=== PATIENT | male | born 1960 | race Caucasian/White ===

== ENCOUNTER 2017-04-05 14:05 | Observation (INO) ==
--- NOTE | 2017-04-05 14:23 | Emergency Department Note ---
Disposition Clinical Impression: Chest pain Qualifiers: Chest pain type: unspecified Qualified Code(s): R07.9 - Chest pain, unspecified Disposition: Admitted As Inpatient Condition: Good Time of Disposition: 17:14 Chest Pain HPI - General Chief Complaint: ED Chest Pain Stated Complaint: Chest Pain Time Seen by Provider: 04/05/17 14:12 Source: patient, family Limitations: no limitations Vital Signs Reviewed: Yes Nursing Notes Reviewed: Yes - History of Present Illness HPI Narrative: 56-year-old male history of hypertension, hyperlipidemia, diabetes, CAD s/p 1 stent 2015 presents to the ED for chest pain. Symptoms have been ongoing for the past 2 weeks gradual worse over the past week until today. Describes left- sided chest discomfort that sharp in nature and sometimes vibratory. Some radiation down the left arm. Last occurrence was 9 AM this morning. Some associated shortness of breath and nausea. Denies any diaphoresis. Does not worsen with exertion. Denies any fever, cough or recent illness. No history of blood clots. Recently had 1 stent placed over one year ago. Takes aspirin no Plavix. Recent surgery for his left foot, sees a geriatric social worker Dr. Woods. Severity scale (1-10): 7 - Related Data Home Medications Medication Instructions Recorded Confirmed Lovastatin [Altoprev] 40 mg PO HS 03/23/15 04/05/17 Mirtazapine [Remeron] 30 mg PO HS 03/23/15 04/05/17 Diltiazem CD (24hr) [Cardizem CD] 240 mg PO DAILY 05/06/15 04/05/17 traMADol [Ultram] 50 mg PO Q6HR PRN 05/06/15 04/05/17 Insulin NPH Human Isophane 40 - 50 units SQ BID 04/05/17 04/05/17 [Novolin N] Insulin Regular, Human [Novolin R] 30 units SQ BID 04/05/17 04/05/17 Previous Rx's Medication Instructions Recorded Isosorbide MONOnitrate (24 HR) 60 mg PO DAILY #30 tab.er.24h 05/08/15 [Imdur] Metoprolol [Lopressor] 25 mg PO BID #60 tablet 05/08/15 Allergies Allergy/AdvReac Type Severity Reaction Status Date / Time No Known Allergies Allergy Verified 04/05/17 14:19 All systems ED: reviewed and negative except as stated. Review of Systems: As Per HPI Constitutional: Denies: fever, chills Eyes: Denies: eye pain, vision change ENT ED: Denies: congestion, dysphagia Cardiovascular: Reports: chest pain, dyspnea on exertion Respiratory: Reports: dyspnea. Denies: cough Gastrointestinal: Denies: abdominal pain, nausea, vomiting Genitourinary: Denies: urgency, dysuria Musculoskeletal: Denies: back pain, neck pain Integumentary: Reports: lesions. Denies: rash, abrasion Neurological: Denies: headache, abnormal gait Psychiatric: Denies: anxiety, depression Endocrine: Denies: fatigue Chest Pain PMH - Past Medical History Medical history: Reports: arthritis, asthma, CHF, coronary artery disease, diabetes, hyperlipidemia, hypertension, myocardial infarction, peripheral artery disease, renal disease Surgical history: Reports: orthopedic, other, other Psychiatric history: Reports: anxiety, depression - Social History Smoking Status: Never smoker Alcohol use: Reports: occasionally Drug use: Reports: none Physical Exam - General Limitations: no limitations General appearance: alert, in no apparent distress, obese - Head Head exam: atraumatic, normocephalic, normal inspection - Eye Eye exam: Present: normal appearance, PERRL, EOMI - ENT ENT exam: normal exam, normal oropharynx, mucous membranes moist - Neck Neck exam: Present: normal inspection, full ROM, trachea midline. Absent: tenderness - Chest Chest inspection: Present: normal inspection, symmetric chest wall rise, tenderness (left chest) - Respiratory Respiratory exam: Present: normal lung sounds bilaterally - Cardiovascular Cardiovascular exam: Present: regular rate, normal rhythm, normal heart sounds - Abdominal Exam Abdominal exam: Present: soft (obese), Non-Tender, normal bowel sounds. Absent : tenderness, distention, guarding, rebound, rigidity - Extremities Exam Extremities exam: Present: full ROM, other. Absent: tenderness, pedal edema, calf tenderness - Back Exam Back exam: Present: normal inspection, full ROM. Absent: tenderness, vertebral tenderness - Neurological Exam Neurological exam: Present: alert, oriented X3 - Psychiatric Psychiatric exam: Present: normal affect, normal mood - Skin Skin exam: Present: warm, dry, intact, normal color Course Course Narrative: 56-year-old male presents with worsening chest pain. Describes some exertional symptoms with associated shortness of breath. Pain is a sharp sensation with now Dole ache 6 of 10. History of cardiac stent over year ago. EKG does not show any acute ischemic changes. Troponin 0. His HEART score is 4. Patient has been given full dose aspirin and nitro for pain. He will benefit admission for further evaluation. Patients in agreement with this plan. Impression is chest pain rule out ACS. - Consultations Consultation #1: Spoke with on-call hospitalist analisa Boston to admit for chest pain R/O ACS. No further orders at this time Time: 17:14 Vital Signs Temperature 98.6 F 04/05/17 14:17 Pulse Rate 93 04/05/17 14:17 Respiratory Rate 20 04/05/17 14:17 Blood Pressure 187/78 04/05/17 14:17 O2 Sat by Pulse Oximetry 99 04/05/17 14: Temperature 98.6 F 04/05/17 14:17 Pulse Rate 96 04/05/17 16:27 Respiratory Rate 18 04/05/17 16:27 Blood Pressure 121/81 04/05/17 16:27 O2 Sat by Pulse Oximetry 96 04/05/17 16:27 Oxygen Delivery Oxygen Delivery Room Air Chest Pain - Medical Records Medical records reviewed: Yes I reviewed the patient's medical records. - Lab Data Lab results reviewed: Yes I reviewed the patient's lab results. Result diagrams: 04/05/17 14:30 04/05/17 14:53 Lab Results 04/05/17 04/05/17 04/05/17 Range/Units 14:30 14:30 14:53 WBC 8.5 (4.3-11.1) K/mcL RBC 5.68 H (4.19-5.50) M/mcL Hgb 16.0 (12.9-16.9) g/dL Hct 47.6 (37.5-50.1) % MCV 83.8 (83.0-100.0) fL MCH 28.2 (28.0-33.3) pg MCHC 33.6 (31.6-35.5) g/dL RDW 13.5 (11.5-14.5) % Plt Count 196 (140-400) K/mcL MPV 9.5 (9.4-12.4) fL Immature Gran % 0.4 (0-4) % Seg Neutrophils % 57.9 % Lymphocytes % 31.2 % Monocytes % 8.2 % Eosinophils % 1.5 % Basophils % 0.8 % Neutrophils # 4.9 (1.6-8.9) K/mcL Lymphocytes # 2.7 (0.6-4.6) K/mcL Monocytes # 0.7 (0.0-1.3) K/mcL Eosinophils # 0.1 (0.0-0.6) K/mcL Basophils # 0.1 (0.0-0.2) K/mcL Sodium 134 L (136-145) mEq/L Potassium 4.5 (3.5-4.5) mEq/L Chloride 100 (98-109) mEq/L Carbon Dioxide 26 (19-29) mEq/L BUN 17 (8-26) mg/dL Creatinine 0.91 (0.72-1.25) mg/dL Est GFR ( Amer) > 60 (> 60) Est GFR (Non-Af Amer) > 60 (> 60) BUN/Creatinine Ratio 19 (6-26) Glucose 360 H (70-99) mg/dL Calculated Osmolality 294 (280-300) Calcium 9.3 (8.6-10.8) mg/dL Troponin I (0-0.03) ng/mL Specimen Rejected Hemolyzed 04/05/17 Range/Units 14:53 WBC (4.3-11.1) K/mcL RBC (4.19-5.50) M/mcL Hgb (12.9-16.9) g/dL Hct (37.5-50.1) % MCV (83.0-100.0) fL MCH (28.0-33.3) pg MCHC (31.6-35.5) g/dL RDW (11.5-14.5) % Plt Count (140-400) K/mcL MPV (9.4-12.4) fL Immature Gran % (0-4) % Seg Neutrophils % % Lymphocytes % % Monocytes % % Eosinophils % % Basophils % % Neutrophils # (1.6-8.9) K/mcL Lymphocytes # (0.6-4.6) K/mcL Monocytes # (0.0-1.3) K/mcL Eosinophils # (0.0-0.6) K/mcL Basophils # (0.0-0.2) K/mcL Sodium (136-145) mEq/L Potassium (3.5-4.5) mEq/L Chloride (98-109) mEq/L Carbon Dioxide (19-29) mEq/L BUN (8-26) mg/dL Creatinine (0.72-1.25) mg/dL Est GFR ( Amer) (> 60) Est GFR (Non-Af Amer) (> 60) BUN/Creatinine Ratio (6-26) Glucose (70-99) mg/dL Calculated Osmolality (280-300) Calcium (8.6-10.8) mg/dL Troponin I 0.00 (0-0.03) ng/mL Specimen Rejected - Radiology Data Radiology results reviewed: Yes I reviewed the patient's radiology results. Chest X-Ray 04/05/17 14:22 IMPRESSION: No acute findings. Slightly limited exam due to decreased inspiratory effort. D/ / Henry Martinez / Henry Martinez Interpreting Provider: Henry Martinez - EKG Data EKG attestation: Yes I reviewed and interpreted this EKG. EKG results narrative: EKG performed 1414 normal sinus rhythm normal axis, no ST elevation or depression, no T wave changes, good R wave progression, intervals are within normal limits. Compared to old EKG performed 05/06/2015 shows similar consistent findings. No acute ischemic changes. Heart Score - Score History: Moderately Suspicious EKG: Normal Age: 45-65 Risk Factors: Equal/Greater than 3 risk factor or history of atherosclerotic disease Troponin: Less than normal limit HEART Score Total: 4
[2017-04-05 14:41] LABS: Basophils # 0.1 K/mcL (0.0-0.2); Basophils % 0.8 %; Eosinophils # 0.1 K/mcL (0.0-0.6); Eosinophils % 1.5 %; Hematocrit 47.6 % (37.5-50.1); Immature Granulocytes % 0.4 % (0-4); Lymphocytes # 2.7 K/mcL (0.6-4.6); Lymphocytes % 31.2 %; Mean Corpuscular HGB Conc 33.6 g/dL (31.6-35.5); Mean Corpuscular Hemoglobin 28.2 pg (28.0-33.3); Mean Corpuscular Volume 83.8 fL (83.0-100.0); Mean Platelet Volume 9.5 fL (9.4-12.4); Monocytes # 0.7 K/mcL (0.0-1.3); Monocytes % 8.2 %; Neutrophils # 4.9 K/mcL (1.6-8.9); Platelet Count 196 K/mcL (140-400); Red Blood Count 5.68 M/mcL (4.19-5.50); Red Cell Distribution Width 13.5 % (11.5-14.5); Segmented Neutrophils % 57.9 %
[2017-04-05 15:14] LABS: BUN/Creatinine Ratio 19 (6-26); Blood Urea Nitrogen 17 mg/dL (8-26); Calcium 9.3 mg/dL (8.6-10.8); Carbon Dioxide 26 mEq/L (19-29); Chloride 100 mEq/L (98-109); Glucose 360 mg/dL (70-99); Osmolality,Calculated 294 (280-300); Potassium 4.5 mEq/L (3.5-4.5); Sodium 134 mEq/L (136-145); eGFR For African Americans > 60 (> 60); eGFR For Non-African Americans > 60 (> 60)
--- NOTE | 2017-04-05 16:11 | Emergency Department Note ---
START Narrative - START START: I examined this patient and my medical decision-making was reviewed with the Resident Physician. I agree with the documented findings, disposition and treatment plan as described except to the extent set forth below. 56-year-old female presents emergency room for chest pain. Patient has history of one stent. He is obese male. He does have risk factors. He rates his pressure in his chest a 6 out of 10. States is been getting worse over the past couple days. ACS rule out in the ER. I anticipate admission for observation for this patient. I feel he is at high risk and would need to be observed.
[2017-04-05] MEDS ORDERED: Aspirin 81 MG TAB.CHEW PO STA (16:55)
[2017-04-05] MEDS ORDERED: *HR* Morphine 2 MG/ML SYRINGE IVP ONE (16:56)
[2017-04-05] MEDS ORDERED: Nitroglycerin 0.4 MG TAB.SUBL SL PRN (16:56)
[2017-04-05] MEDS ORDERED: D5% in Water 1,000 ML IVC PRN ×2 (20:22→20:30)
[2017-04-05] MEDS ORDERED: *HR* Dextrose 50 % in Water (Syg) 50 ML SYRINGE IVP PRN ×2 (20:22→20:30)
[2017-04-05] MEDS ORDERED: Dextrose Gel 15 GM PO PRN ×4 (20:22→20:30)
[2017-04-05] MEDS ORDERED: Naloxone 0.4 MG/ML INJ IVP PRN (20:22)
[2017-04-05] MEDS ORDERED: traMADol 50 MG TABLET PO PRN (20:28)
[2017-04-05] MEDS: *HR* Heparin 5,000 UNIT/ML VIAL SQ SCH (21:15)
[2017-04-05] MEDS: Insulin LISPRO 300 UNITS/3 ML VIAL SQ SCH (21:16)
[2017-04-05] MEDS: Mirtazapine 15 MG TABLET PO SCH (21:16)
--- NOTE | 2017-04-05 21:38 | Internal Med History&Physical ---
Date of Encounter: 04/05/17 Time of Encounter: 21:28 Assessment and Plan (1) Chest pain Current visit: Yes Status: Acute Chest pain greater than 2 weeks. He reports chest pain getting worse over the last 4 days, chest pain is described as intermittent as of this assessment. Heart score of 4. He has multiple risk factors including prior NH with stents, morbid obesity, HTN, HLD, diabetes and congestive heart failure. Continue to rule out ACS. He remains clinically stable. TTE Nuclear stress in the morning Serial troponins Continuous telemetry, continuous O2 monitoring Cardiac/diabetic diet now, nothing by mouth after midnight CBC and BMP in the morning PT/INR and PTT now Qualifiers: Chest pain type: unspecified Qualified Code(s): R07.9 - Chest pain, unspecified (2) Diabetes Current visit: Yes Status: Chronic History of type 2 diabetes. Patient reports his blood glucose is often elevated. Start LSSIC with AC/HS Accu-Cheks and diabetic diet. 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 This evening the blood pressure is 168/89. However he has not had his antihypertensive medication this evening. Restart Cardizem, metoprolol and Imdur. Qualifiers: Hypertension type: essential hypertension Qualified Code(s): I10 - Essential (primary) hypertension (4) Hyperlipidemia Current visit: Yes Status: Acute Resume statin Qualifiers: Hyperlipidemia type: unspecified Qualified Code(s): E78.5 - Hyperlipidemia , unspecified (5) Nonhealing surgical wound Current visit: Yes Status: Acute Being seen by podiatry on an outpatient basis. We will consult podiatry due to nonhealing wound for antibiotic management. Dayshift team to call consult Qualifiers: Encounter type: subsequent encounter Qualified Code(s): T81.89XD - Other complications of procedures, not elsewhere classified, subsequent encounter (6) Morbid obesity with BMI of 50.0-59.9, adult Current visit: Yes Status: Chronic Discussed weight loss and additional lifestyle modifications. (7) DVT prophylaxis Current visit: Yes Status: Acute Heparin 5000 units subcutaneous twice a day Internal Medicine - H&P: HPI Chief complaint: Chest pain Admitted From: Home Plans for Post Hospital Care: Home History of present illness: Mr. Potter is a 56 year old male with a past medical history of coronary artery disease, NH status post stents in 2016, obesity, hypertension, HLD, DM, asthma, arthritis, CHF, PAD. He presents to [facility] [place] today with chest pain. He reports that he was at a podiatry appointment today for reassessment of a left foot diabetic ulcer and while at the podiatry office his mentioned he had been having chest pain and SOB. The salt miner then sent the patient over to the emergency department to be worked up. The patient reports that for the last 2 weeks he has been experiencing SOB and midsternal chest pain described as dull and achy with radiation to the left neck and left arm for greater. Additionally he reports the chest pain has increased in intensity over the last 3-4 days is now intermittently "sharp in spurts". He reports that the chest pain and SOB is exacerbated with activity. He denies any fever, weight gain nausea vomiting or diarrhea. He admits chills, SOB, chest pain with palpitations and tachycardia as well as diaphoresis and dizziness. Troponin in the ED negative at 0.00. EKG indicates normal sinus rhythm chest x-ray shows no acute findings. He is being admitted to rule out ACS Past Med Surg Social Fam HX - Past Medical History Medical history: arthritis, asthma, CHF, coronary artery disease, diabetes, hyperlipidemia, hypertension, myocardial infarction, peripheral artery disease, renal disease Psychiatric history: anxiety, depression - Past Surgical History Surgical History: orthopedic, other, other - Social History Smoking Status: Never smoker Alcohol use: occasionally Drug use: none - Family History Father Adopted: No Family Member Ethnicity: Non- Living Status: Hx Family Cardiac Disorders: Yes (multiple heart attacks pacemaker) Hx Family Respiratory Disorders: Yes Hx Family Cancer: Yes Hx Family GI Disorders: No Hx Family Endocrine Disorder: No Hx Family Neurologic Disorders: Yes Hx Family HEENT Disorders: No Hx Family Autoimmune Disorders: No Internal Medicine - H&P: Meds Lovastatin [Altoprev] 40 mg PO HS 03/23/15 [History] Mirtazapine [Remeron] 30 mg PO HS 03/23/15 [History] Diltiazem CD (24hr) [Cardizem CD] 240 mg PO DAILY 05/06/15 [History] traMADol [Ultram] 50 mg PO Q6HR PRN 05/06/15 [History] Isosorbide MONOnitrate (24 HR) [Imdur] 60 mg PO DAILY #30 tab.er.24h 05/08/15 [ Rx] Metoprolol [Lopressor] 25 mg PO BID #60 tablet 05/08/15 [Rx] Insulin NPH Human Isophane [Novolin N] 40 - 50 units SQ BID 04/05/17 [History] Insulin Regular, Human [Novolin R] 30 units SQ BID 04/05/17 [History] 3 Allergy/AdvReac Type Severity Reaction Status Date / Time No Known Allergies Allergy Verified 04/05/17 14:19 All Systems PM: A 10-system review of systems was performed and is negative for pertinent findings except as documented above in the HPI. - Constitutional Constitutional: no chills, no fever(s), no night sweats - EENT Eyes: no change in vision, no discharge, no pain, no photophobia Ears: no ear discharge, no ear pain, no tinnitus Nose, mouth and throat: no dysphagia, no nasal discharge, no neck pain, no sore throat - Cardiovascular Cardiovascular ROS IM: chest pain, dyspnea, dyspnea on exertion, lightheadedness , no diaphoresis, no edema, no irregular heart rhythm, no palpitations, no syncope - Respiratory Respiratory: dyspnea on exertion, no cough, no dyspnea, no hemoptysis, no wheezing, no pain on inspiration, no chest congestion, no excessive phlegm production - Gastrointestinal Gastrointestinal: no abdominal pain, no diarrhea, no hematemesis, no hematochezia, no melena, no nausea, no vomiting - Musculoskeletal Musculoskeletal ROS IM: no numbness, no tingling - Integumentary Integumentary IM: no rash, no unusual bruising - Neurological Neurological ROS: no confusion, no convulsions, no focal weakness, no numbness, no tingling, no tremor(s) - Hematologic/Lymphatic Hematologic/Lymphatic: no easy bruising - Constitutional Vitals: Temp Pulse Resp BP Pulse Ox 98.0 F 103 18 168/89 97 04/05/17 18:57 04/05/17 18:57 04/05/17 18:57 04/05/17 18:57 04/05/17 18:57 General appearance: Present: cooperative, mild distress, A&O X 3, morbidly obese , answers questions appropriately - Head Head exam: Present: atraumatic, normocephalic - Eye Eye exam: Present: EOMI, PERRL, conjuntiva pink, sclera anicteric Pupils: Present: PERRL - Neck Neck exam general surgery: Present: supple, trachea midline. Absent: lymphadenopathy - Respiratory Respiratory exam: Present: CTAB. Absent: accessory muscle use, rales, rhonchi, wheezes - Cardiovascular Cardiovascular exam: Present: RRR, +S1, +S2. Absent: diastolic murmur, gallop, rubs, systolic murmur - GI/Abdominal GI/Abdominal exam: Present: normal bowel sounds, soft, no peritoneal signs. Absent: distended, tenderness - Extremities Exam Extremities exam: Present: warm, radial pulses palpable and symmetrical. Absent : calf tenderness, cyanotic, pedal edema - Neurological Exam Neurological exam: Present: CN II-XII intact, oriented X3, no focal deficits. Absent: pronater drift, facial droop, speech deficit - Skin Skin exam: Present: dry, intact Internal Med - H&P Results - Labs CBC & Chem 7: 04/05/17 14:30 04/05/17 14:53 Labs: Cardiac Enzymes 04/05/17 Range/Units 20:28 Troponin I 0.00 (0-0.03) ng/mL - EKG Data -: EKG Interpreted by Myself EKG shows normal: sinus rhythm Rate: normal - EKG Data Prior EKG available for review: yes When compared to previous EKG: there is no significant change Interpretation IM: normal EKG - Diagnostic Studies Chest x-ray Status: image reviewed by me Additional comments: No acute findings however, exam is limited due to decreased inspiratory effect
[2017-04-05 21:50] LABS: INR 1.1
[2017-04-05 21:53] LABS: Activated Partial Thrombo Time 29.2 Seconds (26.0-36.0)
[2017-04-05 22:32] LABS: Hemoglobin A1C 11.8 %
[2017-04-05] MEDS: *HR* Morphine 2 MG/ML SYRINGE IVP PRN (22:50)
--- NOTE | 2017-04-05 23:23 | Event Note ---
Date of Encounter: 04/05/17 Time of Encounter: 23:22 Patient seen and examined with nurse practitioner. Agree with assessment and plan
[2017-04-06 04:03] LABS: Basophils # 0.1 K/mcL (0.0-0.2); Basophils % 0.7 %; Eosinophils # 0.2 K/mcL (0.0-0.6); Hematocrit 43.1 % (37.5-50.1); Hemoglobin 14.6 g/dL (12.9-16.9); Immature Granulocytes % 0.2 % (0-4); Mean Corpuscular HGB Conc 33.9 g/dL (31.6-35.5); Mean Corpuscular Hemoglobin 28.9 pg (28.0-33.3); Mean Corpuscular Volume 85.3 fL (83.0-100.0); Mean Platelet Volume 9.6 fL (9.4-12.4); Monocytes # 0.7 K/mcL (0.0-1.3); Monocytes % 8.7 %; Neutrophils # 4.2 K/mcL (1.6-8.9); Platelet Count 188 K/mcL (140-400); Red Blood Count 5.05 M/mcL (4.19-5.50); Red Cell Distribution Width 13.6 % (11.5-14.5); Segmented Neutrophils % 51.4 %
[2017-04-06 04:24] LABS: Alanine Aminotransferase 28 Units/L (0-55); Albumin 2.9 g/dL (3.5-5.0); Albumin/Globulin Ratio 0.8 (1.1-2.2); Alkaline Phosphatase 123 Units/L (38-126); Aspartate Amino Transferase 30 Units/L (5-34); BUN/Creatinine Ratio 20 (6-26); Bilirubin,Total 0.5 mg/dL (0.2-1.2); Blood Urea Nitrogen 18 mg/dL (8-26); Calcium 8.8 mg/dL (8.6-10.8); Carbon Dioxide 23 mEq/L (19-29); Chloride 100 mEq/L (98-109); Globulin 3.7 g/dL (2.4-3.5); Glucose 358 mg/dL (70-99); Osmolality,Calculated 292 (280-300); Potassium 3.8 mEq/L (3.5-4.5); Sodium 133 mEq/L (136-145); Total Protein 6.6 g/dL (6.0-8.3); eGFR For African Americans > 60 (> 60); eGFR For Non-African Americans > 60 (> 60)
[2017-04-06] MEDS: *HR* Heparin 5,000 UNIT/ML VIAL SQ SCH ×2 (05:25→16:44)
[2017-04-06] MEDS: *HR* Morphine 2 MG/ML SYRINGE IVP PRN ×3 (05:56→19:36)
[2017-04-06] MEDS ORDERED: Regadenoson 0.4 MG/5 ML SYRINGE IVP ONE (06:50)
--- NOTE | 2017-04-06 07:21 | Electrocardiograph Report ---
[facility] Test Date: 2017-04-05 Pat Name: Fer Potter Department: 102 Room: 3B23 Gender: M Hogshead Inspector: : 1960 Requested By: Joseph Potter Order Number: [id number] Reading MD: Rod Mills DO Measurements Intervals [place] Rate: 94 P: 32 SD: 144 QRS: -18 QRSD: 114 T: 63 QT: 369 QTc: 420 Interpretive Statements SINUS RHYTHM LOW QRS VOLTAGE IN PRECORDIAL LEADS [QRS DEFLECTION < 1.0 mV IN CHEST LEADS] PATTERN CONSISTENT WITH PULMONARY DISEASE MODERATE INTRAVENTRICULAR CONDUCTION DELAY [110+ ms QRS DURATION] Electronically Signed On 04-06-2017 7:19:41 EST by Rod Mills DO
[2017-04-06] MEDS: Insulin LISPRO 300 UNITS/3 ML VIAL SQ SCH ×4 (08:06→20:52)
[2017-04-06] MEDS ORDERED: Perflutren Lipid Microsphere 1.3 ML in 0.9 % Sodium Chloride 8.7 ML IVP ONE (08:09)
[2017-04-06] MEDS: Isosorbide MONOnitrate (24 HR) 60 MG TAB.ER.24H PO SCH (10:21)
[2017-04-06] MEDS: Diltiazem CD (24hr) 240 MG CAPSULE PO SCH (10:21)
--- NOTE | 2017-04-06 13:08 | Internal Med Progress Note ---
Date of Encounter: 04/06/17 Time of Encounter: 13:07 - Assessment and plan (1) CAD (coronary artery disease) Current Visit: Yes Status: Acute Assessment and plan: hx remote PCI. Elevated by cardiology abnormal stress test; cardiology recommended medical management at that time and would consider left heart catheterization if chest pain persisted. Patient has not followed up with cardiology since then. Now with intermittent chest pain for several months prior to presentation. Serialtroponin negative, EKG without acute ST changes. Stress test pending. Supposed to be on ASA, statin at home but not on home medication list. Continue ASA, statin, BB, nitrate. We will likely consult cardiology even if stress test is negative considering most recent cardiac consultation. Qualifiers: Coronary Disease-Associated Artery/Lesion type: [place] artery [place] vs. transplanted heart: [place] heart Associated angina: with unstable angina Qualified Code(s): I25.110 - Atherosclerotic heart disease of [place] coronary artery with unstable angina pectoris (2) Diabetes Current Visit: Yes Status: Chronic Assessment and plan: per hx. Uncontrolled. Hgb A1c 11.8%. Secondary to dietary noncompliance and sedentary lifestyle. Resume home insulin regimen as diet is likely restricted inpatient, add SSI. Monitor blood sugar and titrate PRN Qualifiers: Diabetes mellitus type: type 2 Diabetes mellitus complication status: with neurologic complications Diabetes mellitus complication detail: with polyneuropathy Qualified Code(s): E11.42 - Type 2 diabetes mellitus with diabetic polyneuropathy; Z79.4 - complaint supervisor (current) use of insulin; Z79.4 - [facility] (current) use of insulin; Z79.4 - [facility] (current) use of insulin; Z79.4 - [facility] (current) use of insulin (3) Diabetic foot infection Current Visit: No Status: Chronic Assessment and plan: per hx. Follows with Dr. Woods. S/p debridement on 04/05/2017. Continue local wound care. (4) Morbid obesity with BMI of 50.0-59.9, adult Current Visit: Yes Status: Chronic Assessment and plan: Lifestyle modifications encouraged but not likely. (5) Essential hypertension Current Visit: Yes Status: Acute Assessment and plan: per hx. BP variable but acceptable. Continue home BP medication. Monitor BP and titrate PRN (6) DVT prophylaxis Current Visit: Yes Status: Acute Assessment and plan: heparin - Subjective Interval history: Seen and examined at bedside. Patient is new to me, information obtained from chart review and patient report. Patient says he still having intermittent chest pain, chest pain localized to left side and radiates to left jaw and down left arm. Nothing makes better or worse described as sharp and tight at times. No shortness of breath. - Constitutional Vitals: Temp Pulse Resp BP Pulse Ox 98.3 F 102 16 120/69 93 04/06/17 12:01 04/06/17 12:01 04/06/17 12:01 04/06/17 12:01 04/06/17 12:01 General appearance: Present: cooperative, mild distress, A&O X 3, morbidly obese , answers questions appropriately - Head Head exam: Present: atraumatic, normocephalic - Eye Eye exam: Present: PERRL, conjuntiva pink, sclera anicteric Pupils: Present: PERRL - Neck Neck exam general surgery: Present: supple, trachea midline. Absent: lymphadenopathy - Respiratory Respiratory exam: Present: CTAB. Absent: accessory muscle use, rales, rhonchi, wheezes - Cardiovascular Cardiovascular exam: Present: RRR, +S1, +S2. Absent: diastolic murmur, gallop, rubs, systolic murmur - GI/Abdominal GI/Abdominal exam: Present: normal bowel sounds, soft, no peritoneal signs. Absent: distended, tenderness - Extremities Exam Extremities exam: Present: warm, radial pulses palpable and symmetrical. Absent : calf tenderness, cyanotic, pedal edema - Neurological Exam Neurological exam: Present: CN II-XII intact, oriented X3, no focal deficits. Absent: pronater drift, facial droop, speech deficit - Skin Skin exam: Present: dry Additional comments: left foot wound Internal Medicine: Result - Labs CBC & Chem 7: 04/06/17 03:04 04/06/17 03:04 Labs: Short CBC 04/06/17 Range/Units 03:04 WBC 8.2 (4.3-11.1) K/mcL Hgb 14.6 (12.9-16.9) g/dL Hct 43.1 (37.5-50.1) % Plt Count 188 (140-400) K/mcL Neutrophils # 4.2 (1.6-8.9) K/mcL BMP 04/06/17 03:04 Sodium 133 L Potassium 3.8 Chloride 100 Carbon Dioxide 23 BUN 18 Creatinine 0.88 Glucose 358 H Calcium 8.8 Cardiac Enzymes 04/05/17 04/06/17 Range/Units 20:28 03:04 Troponin I 0.00 0.01 (0-0.03) ng/mL Liver Function 04/06/17 Range/Units 03:04 Total Bilirubin 0.5 (0.2-1.2) mg/dL AST 30 (5-34) Units/L ALT 28 (0-55) Units/L Alkaline Phosphatase 123 (38-126) Units/L Albumin 2.9 L (3.5-5.0) g/dL - ABG Interpretation ABG results: PT/INR, D-dimer PT 12.0 Seconds (9.4-12.1) 04/05/17 21:02 - Impressions Impressions Echocardiogram 04/06/17 20:21 Impressions: Technically difficult study due to body habitus. LVEF 55%. Normal LV chamber size and function. Moderate concentric left ventricular hypertrophy. Mild left ventricular diastolic dysfunction. Right ventricle was not well visualized. In some views, it appeared to demonstrate normal function. Unable to estimate RVSP due to lack of TR jet. No obvious significant valvular dysfunction. Left Ventricular Wall Motion: Rest Echo Findings All wall segments showed normal motion. Findings: Study Quality * Technically sub-optimal due to body habitus. ECG Findings * Sinus tachycardia. Left Ventricle * LVEF 55%. * Normal LV chamber size and function. * Moderate concentric left ventricular hypertrophy. * Mild left ventricular diastolic dysfunction. Right Ventricle * Right ventricle was not well visualized. In some views, it appeared to demonstrate normal function. Left Atrium * Mild to moderately dilated left atrium. Right Atrium * Right atrium is not well visualized. Interatrial Septum * Interatrial septum not well evaluated. Aortic Valve * Aortic valve not well visualized. * No aortic regurgitation. * No aortic stenosis. Mitral Valve * No mitral stenosis. * No mitral regurgitation. * Mitral valve not well visualized. Tricuspid Valve * Tricuspid valve not well visualized. * No tricuspid regurgitation. * Unable to estimate RVSP due to lack of TR jet. Pulmonic Valve * Pulmonic valve not well visualized. Pericardium * The pericardium appears normal. IVC * The IVC is not well evaluated. Pulmonary Artery * Pulmonary artery not well visualized. Device lead * A device lead was visualized in the right atrium and right ventricle. Consult Discharge Plan - Plan Referrals: Neo Moore MD [Primary Care Provider] -
[2017-04-06] MEDS: Aspirin 81 MG TAB.CHEW PO SCH (16:10)
[2017-04-06] MEDS: Insulin NPH 100 UNIT/ML (x5UNIT) SQ SCH ×2 (16:44→20:51)
[2017-04-06] MEDS: Mirtazapine 15 MG TABLET PO SCH (20:52)
[2017-04-06] MEDS ORDERED: Insulin Regular, Human 100 UNIT/ML SQ SCH (21:00)
[2017-04-07] MEDS: *HR* Heparin 5,000 UNIT/ML VIAL SQ SCH (05:54)
[2017-04-07] MEDS: *HR* Morphine 2 MG/ML SYRINGE IVP PRN (05:54)
[2017-04-07 06:23] LABS: Chol/HDL Ratio 7.9 (0-4.9); Cholesterol 198 mg/dL (< 200); HDL Cholesterol 25 mg/dL (40-59); Triglycerides 519 mg/dL (< 150)
[2017-04-07] MEDS: Insulin NPH 100 UNIT/ML (x5UNIT) SQ SCH (08:33)
[2017-04-07] MEDS: Isosorbide MONOnitrate (24 HR) 60 MG TAB.ER.24H PO SCH (08:33)
[2017-04-07] MEDS: Diltiazem CD (24hr) 240 MG CAPSULE PO SCH (08:33)
[2017-04-07] MEDS: Aspirin 81 MG TAB.CHEW PO SCH (08:33)
[2017-04-07] MEDS: Insulin LISPRO 300 UNITS/3 ML VIAL SQ SCH ×2 (08:34→12:00)
[2017-04-07] MEDS ORDERED: Insulin LISPRO 300 UNITS/3 ML VIAL SQ SCH ×3 (09:00→21:00)
--- NOTE | 2017-04-07 13:58 | Cardiology Consult Note ---
<Cruzito Garcia - Last Filed: 04/07/17 14:21> Date of Encounter: 04/07/17 Time of Encounter: 13:56 Assessment and Plan (1) Chest pain Current Visit: Yes Status: Acute Atypical chest pain. There is reproducible pain on my exam. Pain occurs at rest. Pain radiates from his jaw to the top of his head. Cardiac work-up includes troponin negative x 3. EKG shows Sr with no acute ST changes, 2 day stress test was negative for ischemia. TTE shows preserved EF and no significant valvular disease. Findings reviewed with patient and family. LHC vs medical management discussed . He agrees to trial of medical management with close out-pt f/u. Possible LHC as out-pt. Noted to be started on imdur at Last hospital stay but he did not refill. Re start imdur. Continue asa, statin, and beta-destin. Aggressive risk factor modification. Recommend JOSÉ treatment. Out-pt f/u will be coordinated by [facility] in 1-2 weeks. Qualifiers: Chest pain type: unspecified Qualified Code(s): R07.9 - Chest pain, unspecified (2) CAD (coronary artery disease) Current Visit: Yes Status: Acute H/o PCI in 2008. Reports repeat LHC in 2013 at [facility] with no intervention. C/o chest pain. See plan above. Qualifiers: Coronary Disease-Associated Artery/Lesion type: [place] artery [place] vs. transplanted heart: [place] heart Associated angina: with unstable angina Qualified Code(s): I25.110 - Atherosclerotic heart disease of [place] coronary artery with unstable angina pectoris (3) Morbid obesity with BMI of 50.0-59.9, adult Current Visit: Yes Status: Chronic Discussion w patient/family: The assessment and plan as outlined above was discussed with the patient and/or family members who expressed understanding and agreement. All questions were answered. Thank you for involving us in the care of your patient. Please call with any questions. History of Present Illness Consult date: 04/07/17 Requesting physician: Ava Coreas Consult reason: Chest pain Chief complaint: CHEST PAIN History of present illness: Mr. Potter is a 56 year old male with a past medical history of CAD s/p PCI in 2008 at [facility], HTN, HLD, Obesity, DM type II, and untreated sleep apnea who presented with three weeks of increasing left sided chest pain, jaw pain, and left arm pain. Reports pain is random and often occurs at rest. Denies use of NTG. He also c/o dizziness and SOB. He underwent extensive cardiac work-up during his stay that was benign. Cardiology consulted to consider LHC for ongoing chest pain. His last LHC was in 2013 at [facility]. No intervention at that time. Past Med Surg Social Fam HX - Past Medical History Attestation: Yes The following information was validated with the patient. Medical history: arthritis, asthma, CHF, coronary artery disease, diabetes, hyperlipidemia, hypertension, myocardial infarction, peripheral artery disease, renal disease Psychiatric history: anxiety, depression - Past Surgical History Surgical History: orthopedic, other, other - Social History Smoking Status: Never smoker Alcohol use: occasionally Drug use: none - Family History Father Adopted: No Family Member Ethnicity: Non- Living Status: Hx Family Cardiac Disorders: Yes (multiple heart attacks pacemaker) Hx Family Respiratory Disorders: Yes Hx Family Cancer: Yes Hx Family GI Disorders: No Hx Family Endocrine Disorder: No Hx Family Neurologic Disorders: Yes Hx Family HEENT Disorders: No Hx Family Autoimmune Disorders: No Medications and Allergies Mirtazapine [Remeron] 30 mg PO HS 03/23/15 [History] Diltiazem CD (24hr) [Cardizem CD] 240 mg PO DAILY 05/06/15 [History] traMADol [Ultram] 50 mg PO Q6HR PRN 05/06/15 [History] Metoprolol [Lopressor] 25 mg PO BID #60 tablet 05/08/15 [Rx] Insulin NPH Human Isophane [Novolin N] 40 - 50 units SQ BID 04/05/17 [History] Insulin Regular, Human [Novolin R] 30 units SQ BID 04/05/17 [History] Aspirin 81 mg PO DAILY #30 tab.chew 04/07/17 [Rx] Atorvastatin [Lipitor] 40 mg PO HS #30 tablet 04/07/17 [Rx] Isosorbide MONOnitrate (24 HR) [Imdur] 60 mg PO DAILY #30 tab.er.24h 04/07/17 [ Rx] 3 Allergy/AdvReac Type Severity Reaction Status Date / Time No Known Allergies Allergy Verified 04/05/17 14:19 All Systems Review: A 10-system review of systems was performed and is negative for pertinent findings except as documented above in the HPI. Physical Examination Vital Signs, Last 4 Hours Temp Pulse Resp BP Pulse Ox 04/07/17 11:30 97.3 F L 83 16 118/67 95 General: Conversant, No Apparent Distress HEENT: Atraumatic, Normocephaly, Mucus Membranes Moist Neck: No JVD, Normal carotid pulses Cardiac: Reg Rate and Rhythm, Normal S1 and S2, No Murmur Lungs: Normal Breath Sounds, No Wheeze, Rales, Rhonchi Neuro: Alert and responsive, No focal deficits noted Abdomen: Soft, Non-Tender Skin: No rashes noted on visualized skin Musculoskeletal: No Chest Wall Tenderness Extremities: No Clubbing, No Cyanosis, No Edema, Normal Pulses Results 04/06/17 03:04 04/06/17 03:04 - Imaging and Cardiology Stress Test: report reviewed Echo: report reviewed - EKG Interpretation EKG results cardiology: personally reviewed Consult Discharge Plan - Plan Additional Instructions: F/up with Cardiology in 3-4 weeks Referrals: Neo Moore MD [Primary Care Provider] - Prescriptions: Aspirin 81 mg PO DAILY #30 tab.chew Atorvastatin [Lipitor] 40 mg PO HS #30 tablet Isosorbide MONOnitrate (24 HR) [Imdur] 60 mg PO DAILY #30 tab.er.24h <Kristian Harrington - Last Filed: 04/07/17 15:26> Date of Encounter: 04/07/17 - Attending Attestation I have personally performed a face to face evaluation on this patient. I have reviewed and agree with the care plan. History and Exam by me shows: Atypical chest pain with negative workup. Left heart cath is an option but a trial of medical mgmt. seems most approriate. Assessment and Plan Discussion w patient/family: The assessment and plan as outlined above was discussed with the patient and/or family members who expressed understanding and agreement. All questions were answered. Thank you for involving us in the care of your patient. Please call with any questions. History of Present Illness History of present illness: Mr. Potter is a 56 year old male All Systems Review: A 10-system review of systems was performed and is negative for pertinent findings except as documented above in the HPI. Physical Examination Vital Signs, Last 4 Hours Temp Pulse Resp BP Pulse Ox 04/07/17 14:41 98.2 F 85 15 113/67 92 04/07/17 11:30 97.3 F L 83 16 118/67 95 Results 04/06/17 03:04 04/06/17 03:04
[2017-04-07 14:42] VITALS: BP 113/67
--- NOTE | 2017-04-07 15:14 | Discharge Summary ---
Date of Encounter: 04/07/17 Time of Encounter: 15:11 - Discharge Diagnosis (1) Chest pain Priority: Primary Status: Acute Qualifiers: Chest pain type: unspecified Qualified Code(s): R07.9 - Chest pain, unspecified (2) CAD (coronary artery disease) Priority: Secondary Status: Chronic Qualifiers: Coronary Disease-Associated Artery/Lesion type: [place] artery [place] vs. transplanted heart: [place] heart Associated angina: without angina Qualified Code(s): I25.10 - Atherosclerotic heart disease of [place] coronary artery without angina pectoris (3) Essential hypertension Priority: Secondary Status: Chronic (4) Hyperlipidemia Priority: Secondary Status: Chronic Qualifiers: Hyperlipidemia type: mixed hyperlipidemia Qualified Code(s): E78.2 - Mixed hyperlipidemia (5) Nonhealing surgical wound Priority: Secondary Status: Chronic Qualifiers: Encounter type: subsequent encounter Qualified Code(s): T81.89XD - Other complications of procedures, not elsewhere classified, subsequent encounter (6) Diabetes Priority: Secondary Status: Chronic Qualifiers: Diabetes mellitus type: type 2 Diabetes mellitus complication status: with neurologic complications Diabetes mellitus complication detail: with polyneuropathy Diabetes mellitus oil heaterman insulin use: with chcf use Qualified Code(s): E11.42 - Type 2 diabetes mellitus with diabetic polyneuropathy; Z79.4 - terminal operations 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 (current) use of insulin; Z79.4 - prison ( current) use of insulin; Z79.4 - prison (current) use of insulin; Z79.4 - terminal operations 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 (current) use of insulin (7) Morbid obesity with BMI of 50.0-59.9, adult Priority: Secondary Status: Chronic (8) Peripheral vascular disease Priority: Secondary Status: Chronic - Discharge Medications Prescriptions: Aspirin 81 mg PO DAILY #30 tab.chew Atorvastatin [Lipitor] 40 mg PO HS #30 tablet Isosorbide MONOnitrate (24 HR) [Imdur] 60 mg PO DAILY #30 tab.er.24h Home Medications: Mirtazapine [Remeron] 30 mg PO HS 03/23/15 [History] Diltiazem CD (24hr) [Cardizem CD] 240 mg PO DAILY 05/06/15 [History] traMADol [Ultram] 50 mg PO Q6HR PRN 05/06/15 [History] Metoprolol [Lopressor] 25 mg PO BID #60 tablet 05/08/15 [Rx] Insulin NPH Human Isophane [Novolin N] 40 - 50 units SQ BID 04/05/17 [History] Insulin Regular, Human [Novolin R] 30 units SQ BID 04/05/17 [History] Aspirin 81 mg PO DAILY #30 tab.chew 04/07/17 [Rx] Atorvastatin [Lipitor] 40 mg PO HS #30 tablet 04/07/17 [Rx] Isosorbide MONOnitrate (24 HR) [Imdur] 60 mg PO DAILY #30 tab.er.24h 04/07/17 [ Rx] Allergies/Adverse Reactions: 3 Allergy/AdvReac Type Severity Reaction Status Date / Time No Known Allergies Allergy Verified 04/05/17 14:19 Procedures/tests Complete & Pending: Procedures Performed prior 72 hours Category Date Time Status NM apurva perf SPECT multi [NM] Routine Exams 04/06/17 08:00 Taken EV echocardiogram w enhance Routine Y 04/06/17 20:21 Completed SP pharm nuclear stress Routine Y 04/06/17 07:30 Completed Date of admission: 04/05/17 17:11 Primary care physician: Neo Moore MD Consults: 04/05/17 22:20 Consult to Podiatry [CONS] Routine Consulting Provider: [facility] Reason for Consult: Nonhealing diabetic foot ulcer on left foot; antibiotic management Call Completed: No 04/07/17 11:50 Consult to Cardiology [CONS] Routine Comment: Consulting Provider: [facility] [place] Reason for Consult: Chest pain, intermittent, poorly controlled TG, DM Call Completed: Yes Discharging clinician: Ava Coreas Anticipated date of discharge: 04/07/17 - Patient Status Disposition: Home, Self-Care Condition: Good Functional capacity at discharge: independent ambulation Overall status at discharge: patient is progressing back to baseline - Discharge Instructions Instructions: Chest Pain (DC), Diabetic Foot Care (DC), Obesity (DC) Follow Up With: Neo Moore MD [Primary Care Provider] - Additional Instructions: F/up with Cardiology in 3-4 weeks - Diet and Activity Activity: resume usual activities as tolerated Diet: diabetic diet, low fat, low cholesterol, low salt diet Hospital course: Mr. Potter is a 56 year old male with the above medical problems, who was admitted with chest pain. Initial labs, EKG and chest x-ray showed no acute abnormality. Telemetry monitoring remained uneventful. Serial troponins remained negative. Echocardiogram showed 55% ejection fraction, moderate concentric LVH, mild left ventricular diastolic dysfunction. Nuclear stress test was negative for infarct or ischemia. Cardiology was consulted due to intermittent chest pain and recommended outpatient follow-up. Patient was supposed to be on Imdur but has not been taking it, provided with new prescription and encouraged compliance. He was also noted to have uncontrolled diabetes with hemoglobin A1c of 11.8%. Lipid profile showed elevated triglycerides at 519. He was explained about risk factor modification with dietary restrictions, weight loss and compliance with insulin. He verbalized understanding. He is medically stable for discharge. - Time Spent with Patient Total time spent providing and/or coordinating discharge services: Greater than 30 minutes (45 min) - Constitutional Vitals: Temp Pulse Resp BP Pulse Ox 98.2 F 85 15 113/67 92 04/07/17 14:41 04/07/17 14:41 04/07/17 14:41 04/07/17 14:41 04/07/17 14:41 General appearance: Present: cooperative, A&O X 3, morbidly obese, answers questions appropriately - Respiratory Respiratory exam: Present: CTAB. Absent: accessory muscle use, rales, rhonchi, wheezes
[2017-04-07] MEDS ORDERED: Insulin NPH 100 UNIT/ML (x5UNIT) SQ SCH (21:00)
== END 2017-04-07 16:00 | disposition home or self-care (01) ==
LOC: 3BNU 14:05 → EMEROO 14:05 → SUATTDRO 17:11 → 3BNU 18:28
PROVIDERS: ADMIT Nurse Practitioner; ATTEND Internal Medicine

== ENCOUNTER 2019-01-08 17:32 | Observation (INO) ==
[2019-01-08] MEDS ORDERED: Aspirin 325 MG TABLET PO ONE ×2 (18:16→23:39)
[2019-01-08 18:21] LABS: Basophils # 0.1 K/mcL (0.0-0.2); Basophils % 0.8 %; Eosinophils # 0.1 K/mcL (0.0-0.6); Eosinophils % 1.3 %; Hematocrit 47.3 % (37.5-50.1); Hemoglobin 15.8 g/dL (12.9-16.9); Immature Granulocytes % 0.5 % (0-4); Lymphocytes # 2.2 K/mcL (0.6-4.6); Lymphocytes % 29.4 %; Mean Corpuscular HGB Conc 33.4 g/dL (31.6-35.5); Mean Corpuscular Hemoglobin 28.2 pg (28.0-33.3); Mean Corpuscular Volume 84.5 fL (83.0-100.0); Monocytes # 0.7 K/mcL (0.0-1.3); Neutrophils # 4.4 K/mcL (1.6-8.9); Platelet Count 187 K/mcL (140-400); Red Cell Distribution Width 13.8 % (11.5-14.5); White Blood Count 7.5 K/mcL (4.3-11.1)
[2019-01-08] MEDS: Nitroglycerin 0.4 MG TAB.SUBL SL PRN ×3 (18:36→18:47)
[2019-01-08 18:39] LABS: INR 0.9; Prothrombin Time 10.3 Seconds (9.4-12.1)
[2019-01-08 18:42] LABS: Activated Partial Thrombo Time 29.6 Seconds (26.0-36.0)
--- NOTE | 2019-01-08 18:42 | Emergency Department Note ---
Disposition Clinical Impression: Lightheadedness, Hyperglycemia Chest pain Qualifiers: Chest pain type: unspecified Qualified Code(s): R07.9 - Chest pain, unspecified Disposition: Admitted As Inpatient Condition: Good Forms: ED Satisfaction Letter Time of Disposition: 20:26 Chest Pain HPI - General Chief Complaint: ED Chest Pain Stated Complaint: CP/DAMON/Dizziness Time Seen by Provider: 01/08/19 17:39 Source: patient Mode of arrival: private vehicle Limitations: no limitations Vital Signs Reviewed: Yes Nursing Notes Reviewed: Yes - History of Present Illness HPI Narrative: This is a 58-year-old male with a history of CAD, hypertension, diabetes, hyperlipidemia who presents with a chief complaint of chest pain and dizziness. Patient reports he had symptoms since Monday. Reports pain in the center of his chest. He is also felt dizzy when walking around. He has had some mild shortness of breath. He denies any nausea vomiting or diarrhea. No recent illnesses with the exception of a cough. No other complaints. Pt complaint: chest pain Onset (ago): day(s) Duration: intermittent Pain Location: left chest Severity scale (1-10): 6 Pain Radiation: none Improves with: nothing Worsens with: nothing Associated symptoms: Reports: dyspnea. Denies: nausea, vomiting Treatments prior to arrival chest pain: none - Related Data Home Medications Medication Instructions Recorded Confirmed Mirtazapine [Remeron] 30 mg PO HS 03/23/15 04/05/17 Diltiazem CD (24hr) [Cardizem CD] 240 mg PO DAILY 05/06/15 04/05/17 traMADol [Ultram] 50 mg PO Q6HR PRN 05/06/15 04/05/17 Insulin NPH Human Isophane 40 - 50 units SQ BID 04/05/17 04/05/17 [Novolin N] Insulin Regular, Human [Novolin R] 30 units SQ BID 04/05/17 04/05/17 Previous Rx's Medication Instructions Recorded Metoprolol [Lopressor] 25 mg PO BID #60 tablet 05/08/15 Aspirin 81 mg PO DAILY #30 tab.chew 04/07/17 Atorvastatin [Lipitor] 40 mg PO HS #30 tablet 04/07/17 Isosorbide MONOnitrate (24 HR) 60 mg PO DAILY #30 tab.er.24h 04/07/17 [Imdur] Allergies Allergy/AdvReac Type Severity Reaction Status Date / Time No Known Allergies Allergy Verified 04/05/17 14:19 All systems ED: reviewed and negative except as stated. Constitutional: Denies: fever Cardiovascular: Reports: chest pain Respiratory: Reports: cough, dyspnea Gastrointestinal: Denies: abdominal pain, nausea, vomiting, diarrhea Chest Pain PMH - Past Medical History Medical history: Reports: arthritis, asthma, CHF, coronary artery disease, diabetes, hyperlipidemia, hypertension, myocardial infarction, peripheral artery disease, renal disease Surgical history: Reports: orthopedic, other, other Psychiatric history: Reports: anxiety, depression - Social History Smoking Status: Never smoker Alcohol use: Reports: occasionally Drug use: Reports: none Physical Exam - General Limitations: no limitations General appearance: alert, in no apparent distress - Head Head exam: atraumatic, normocephalic, normal inspection - Eye Eye exam: Present: normal appearance - ENT ENT exam: normal exam - Neck Neck exam: Present: normal inspection - Chest Chest inspection: Present: normal inspection, symmetric chest wall rise - Respiratory Respiratory exam: Present: normal lung sounds bilaterally - Cardiovascular Cardiovascular exam: Present: normal rhythm, tachycardia - Abdominal Exam Abdominal exam: Present: soft, Non-Tender. Absent: tenderness, distention, rigidity - Extremities Exam Extremities exam: Present: normal inspection, full ROM - Expanded Upper Extremity Exam Shoulder exam: Present: normal inspection, full ROM Arm exam: Present: normal inspection, full ROM Elbow exam: Present: normal inspection, full ROM Forearm/Wrist exam: Present: normal inspection, full ROM Hand exam: Present: normal inspection, full ROM - Expanded Lower Extremity Exam Hip/Pelvis exam: Present: normal inspection, full ROM Upper leg exam: Present: normal inspection, full ROM Knee exam: Present: normal inspection, full ROM Lower leg exam: Present: normal inspection, full ROM Ankle exam: Present: normal inspection, full ROM Foot/toe exam: Present: normal inspection, full ROM - Skin Skin exam: Present: warm, dry Course Course Narrative: Seen and examined. Vital signs reviewed. He is noted to be mildly tachycardic here. Plan for EKG, chest x-ray, labs, aspirin and nitroglycerin. Given his risk factors anticipation for admission. - Reevaluation(s) Reevaluation #1: Patient's pain did somewhat improve with nitroglycerin but still present. Formal and some morphine ordered. His labs are grossly unremarkable with the exception of hyperglycemia without evidence of an anion gap. 2 units of insulin have been ordered. Chest x-ray is unremarkable. Patient to be admitted to the hospital service. Vital Signs Temperature 98.3 F 01/08/19 17:44 Pulse Rate 113 01/08/19 17:44 Respiratory Rate 18 01/08/19 17:44 Blood Pressure 208/113 01/08/19 17:44 O2 Sat by Pulse Oximetry 98 01/08/19 17:44 Temperature 98.3 F 01/08/19 17:44 Pulse Rate 109 01/08/19 20:00 Respiratory Rate 20 01/08/19 20:00 Blood Pressure 148/78 01/08/19 20:00 O2 Sat by Pulse Oximetry 99 01/08/19 20:00 Oxygen Delivery Oxygen Delivery Room Air Chest Pain - MDM Narrative Medical decision making narrative: 58-year-old male presenting with chest pain and lightheadedness since over the weekend. He is noted to be slightly tachycardic here around 110. His resting heart rate per family is around 100. EKG shows a sinus rhythm with an old right bundle branch block. His x-ray and labs are otherwise unremarkable with the exception of being hyperglycemic without. Patient was given nitroglycerin and aspirin. He was also given morphine for his pain which improved. He was given 10 units of insulin for his hyperglycemia. The patient is admitted to the hospital service for chest pain, hyperglycemia and lightheadedness. - Lab Data Lab results reviewed: Yes I reviewed the patient's lab results. Result diagrams: 01/08/19 18:01 01/08/19 18:01 Lab Results 01/08/19 01/08/19 01/08/19 Range/Units 18:01 18:01 18:01 WBC 7.5 (4.3-11.1) K/mcL RBC 5.60 H (4.19-5.50) M/mcL Hgb 15.8 (12.9-16.9) g/dL Hct 47.3 (37.5-50.1) % MCV 84.5 (83.0-100.0) fL MCH 28.2 (28.0-33.3) pg MCHC 33.4 (31.6-35.5) g/dL RDW 13.8 (11.5-14.5) % Plt Count 187 (140-400) K/mcL MPV 10.0 (9.4-12.4) fL Immature Gran % 0.5 (0-4) % Seg Neutrophils % 59.0 % Lymphocytes % 29.4 % Monocytes % 9.0 % Eosinophils % 1.3 % Basophils % 0.8 % Neutrophils # 4.4 (1.6-8.9) K/mcL Lymphocytes # 2.2 (0.6-4.6) K/mcL Monocytes # 0.7 (0.0-1.3) K/mcL Eosinophils # 0.1 (0.0-0.6) K/mcL Basophils # 0.1 (0.0-0.2) K/mcL PT 10.3 (9.4-12.1) Seconds INR 0.9 APTT 29.6 (26.0-36.0) Seconds Sodium (136-145) mEq/L Potassium (3.5-5.1) mEq/L Chloride (98-107) mEq/L Carbon Dioxide (23-29) mEq/L BUN (6-20) mg/dL Creatinine (0.70-1.30) mg/dL Est GFR ( Amer) (> 60) Est GFR (Non-Af Amer) (> 60) BUN/Creatinine Ratio (6-26) Glucose (70-105) mg/dL Calculated Osmolality (280-300) Calcium (8.6-10.3) mg/dL Troponin I < 0.03 (< 0.04) ng/mL B-Natriuretic Peptide (Less than 100) pg/mL 01/08/19 01/08/19 Range/Units 18:01 18:01 WBC (4.3-11.1) K/mcL RBC (4.19-5.50) M/mcL Hgb (12.9-16.9) g/dL Hct (37.5-50.1) % MCV (83.0-100.0) fL MCH (28.0-33.3) pg MCHC (31.6-35.5) g/dL RDW (11.5-14.5) % Plt Count (140-400) K/mcL MPV (9.4-12.4) fL Immature Gran % (0-4) % Seg Neutrophils % % Lymphocytes % % Monocytes % % Eosinophils % % Basophils % % Neutrophils # (1.6-8.9) K/mcL Lymphocytes # (0.6-4.6) K/mcL Monocytes # (0.0-1.3) K/mcL Eosinophils # (0.0-0.6) K/mcL Basophils # (0.0-0.2) K/mcL PT (9.4-12.1) Seconds INR APTT (26.0-36.0) Seconds Sodium 135 L (136-145) mEq/L Potassium 4.5 (3.5-5.1) mEq/L Chloride 102 (98-107) mEq/L Carbon Dioxide 22 L (23-29) mEq/L BUN 23 H (6-20) mg/dL Creatinine 0.87 (0.70-1.30) mg/dL Est GFR ( Amer) > 60 (> 60) Est GFR (Non-Af Amer) > 60 (> 60) BUN/Creatinine Ratio 26 (6-26) Glucose 502 H* (70-105) mg/dL Calculated Osmolality 306 H (280-300) Calcium 9.0 (8.6-10.3) mg/dL Troponin I (< 0.04) ng/mL B-Natriuretic Peptide 12 (Less than 100) pg/mL - Radiology Data Radiology results reviewed: Yes I reviewed the patient's radiology results. Chest X-Ray 01/08/19 17:46 IMPRESSION: No acute process. D/ / Jacobo Maxwell MD / Jacobo Maxwell MD Interpreting Provider: Jacobo Maxwell MD - EKG Data EKG attestation: Yes I reviewed and interpreted this EKG. EKG results narrative: EKG demonstrates sinus tachycardia with a rate of 109 with a right bundle branch block. Prolonged QRS ration of 160. Other intervals normal. He has upsloping ST depressions in the inferior and lateral leads. No gross ST elevations. No significant changes from previous EKG dated 08/26/18 Heart Score - Score History: Moderately Suspicious EKG: Non Specific repolarisation Disturbance Age: 45-65 Risk Factors: Equal/Greater than 3 risk factor or history of atherosclerotic disease Troponin: Less than normal limit HEART Score Total: 5 S.B.A.R. - S.Kendal.Nancy Situation: Demographics, MOA Background: Presenting Complaint, Relevant PMH, Meds, & Allergies Assessment: Vital Signs, Course and respsone to treatment, Exam Concerns, Patient/Family Expectation, Pertinant Lab Results Recommendation: Barrier(s) to disposition, Recommendation based on pending studies, treatments, or consults S.B.A.RFariha Report Given to: Dr. Alyssa LópezBFarihaANavya Repor Time: 20:27
[2019-01-08] MEDS ORDERED: Morphine Sulfate 2 MG/ML SYRINGE IVP ONE (18:55)
[2019-01-08 19:32] LABS: BUN/Creatinine Ratio 26 (6-26); Blood Urea Nitrogen 23 mg/dL (6-20); Carbon Dioxide 22 mEq/L (23-29); Chloride 102 mEq/L (98-107); Glucose 502 mg/dL (70-105); Osmolality,Calculated 306 (280-300); Potassium 4.5 mEq/L (3.5-5.1); Sodium 135 mEq/L (136-145); eGFR For African Americans > 60 (> 60); eGFR For Non-African Americans > 60 (> 60)
[2019-01-08] MEDS ORDERED: Insulin Human Regular 10 UNIT in 0.9 % Sodium Chloride 10 ML IV ONE (19:36)
[2019-01-08] MEDS ORDERED: Naloxone 0.4 MG/ML INJ IVP PRN (21:58)
[2019-01-08] MEDS ORDERED: Ondansetron ODT 4 MG TAB.RAPDIS SL PRN (21:58)
[2019-01-08] MEDS ORDERED: Mag Hydrox/Al Hydrox/Simeth 30 ML UDC PO PRN (21:58)
--- NOTE | 2019-01-08 23:28 | Internal Med History&Physical ---
Date of Encounter: 01/08/19 Time of Encounter: 23:19 Internal Medicine - H&P: HPI Chief complaint: chest pain Admitted From: Home History of present illness: Mr. Potter is a 58 year old male with past medical history of type 2 diabetes, hyperlipidemia, history of CAD status post stent 10 years ago, hypertension Presented to the ED for acute chest pain. Patient chest pain occurred suddenly substernal stabbing intermittent every 30 minutes lasting for 20 minutes radiating to the right shoulder not alleviated with nitroglycerin, moving or breathing. Exacerbated with position and exertion. No association of nausea, vomiting, diaphoresis, shortness of breath or abdominal pain. 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 Patient was recommended outpatient left heart catheterization with medical management trial. Patient failed to follow-up since then. Last catheterization 2014 [facility] with no intervention. Patient admits a family history of cardiac disease from his father and mother's side significant with his father having ND in his 30s. Patient otherwise cannot go up 1 flight of stairs without being short of breath, and denies smoking, drinking and drugs. Patient reports sleep apnea that is untreated. Patient otherwise states compliance with medication, no change of diet, recent surgeries. 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 Patient reported compliance with insulin. CODE STATUS was discussed in detail [id number] and the patient proceeded with a DNR/DNI in a CODE BLUE. Patient wishes if he does have a pulse, and is in respiratory distress then he would be agreeable to intubation.. Past Med Surg Social Fam HX - Past Medical History Medical history: arthritis, asthma, CHF, coronary artery disease, diabetes, hyperlipidemia, hypertension, myocardial infarction, peripheral artery disease, renal disease Psychiatric history: anxiety, depression - Past Surgical History Surgical History: orthopedic, other, other Additional surgical history: 2 toes amputations on left foot - Social History Smoking Status: Never smoker Smokeless Tobacco Status: No Alcohol use: occasionally Drug use: none - Family History Father Adopted: No Family Member Ethnicity: Non- Living Status: Hx Family Cardiac Disorders: Yes (multiple heart attacks pacemaker) Hx Family Respiratory Disorders: Yes Hx Family Cancer: Yes Hx Family GI Disorders: No Hx Family Endocrine Disorder: No Hx Family Neurologic Disorders: Yes Hx Family HEENT Disorders: No Hx Family Autoimmune Disorders: No Internal Medicine - H&P: Meds Mirtazapine [Remeron] 30 mg PO HS 03/23/15 [History] Diltiazem CD (24hr) [Cardizem CD] 240 mg PO DAILY 05/06/15 [History] traMADol [Ultram] 50 mg PO Q6HR PRN 05/06/15 [History] Metoprolol [Lopressor] 25 mg PO BID #60 tablet 05/08/15 [Rx] Insulin NPH Human Isophane [Novolin N] 40 - 50 units SQ BID 04/05/17 [History] Insulin Regular, Human [Novolin R] 40 units SQ BID 04/05/17 [History] Aspirin 81 mg PO DAILY #30 tab.chew 04/07/17 [Rx] Atorvastatin [Lipitor] 40 mg PO HS #30 tablet 04/07/17 [Rx] Isosorbide MONOnitrate (24 HR) [Imdur] 60 mg PO DAILY #30 tab.er.24h 04/07/17 [Rx] Allergy/AdvReac Type Severity Reaction Status Date / Time No Known Allergies Allergy Verified 04/05/17 14:19 All Systems PM: A 10-system review of systems was performed and is negative for pertinent findings except as documented above in the HPI. Review of systems: General: No unintentional weightloss, No fever, No night sweats. Head: No headahce, No injury. Ears: No discharge, No earache Eyes: No drainage, No eye pain Mouth and Throat: No new ulcers, No pain Nose and Sinus: No new congestion, No pain, Respiratory: No cough, No sputum production, No dyspnea Cardiovascular: + chest pain, No palpitations. Gastrointestinal: No nausea, No vomiting. No abdominal pain Genital Tract: No discharge, No pain Urinary Tract: No dysuria, No discharge. MSK: No new/worsening joint pain or new/worsening muscle ache. Endocrine: No cold intolerance, No polyuria Psychological: No suicidal, No homocidal ideation. - Constitutional Vitals: Temp Pulse Resp BP Pulse Ox 97.9 F 109 16 147/91 97 01/08/19 21:44 01/08/19 21:44 01/08/19 21:44 01/08/19 21:44 01/08/19 21:44 Exam: General Appearance: Appearing as age, well-nourished in no acute distress. Head: Atraumatic normocephalic Skin: Normal texture, normal turgor, warm, dry. Eyes: Conjunctivae not pale with minimal nontender erythema, no drainage, or ulcers. Anicteric. Neck: No Lymphadenopathy in the anterior/posterior cervical chain. No thyromegaly, masses or ulcers. Trachea midline. Heart: RRR, no murmurs. Capillary refill 3 seconds Lungs: No accessory muscle usage, lungs clear to auscultation bilaterally, no wheezes or crackles. Extremities: No pitting edema, clubbing, cyanosis, or ulcers. 3rd and 4th toe amputation left foot. Abdomen: Non-distended, normoactive bowel sounds. non-tender to palpation, no hepatomegally. No guarding. Neuro: AOx3 with no new focal deficits. MSK: Strength 5/5 Upper extremity equal bilaterally. Strength 5/5 Lower extremity equal bilaterally Internal Med - H&P Results - Labs CBC & Chem 7: 01/08/19 18:01 01/08/19 18:01 Labs: Short CBC 01/08/19 Range/Units 18:01 WBC 7.5 (4.3-11.1) K/mcL Hgb 15.8 (12.9-16.9) g/dL Hct 47.3 (37.5-50.1) % Plt Count 187 (140-400) K/mcL Neutrophils # 4.4 (1.6-8.9) K/mcL BMP 01/08/19 18:01 Sodium 135 L Potassium 4.5 Chloride 102 Carbon Dioxide 22 L BUN 23 H Creatinine 0.87 Glucose 502 H* Calcium 9.0 Cardiac Enzymes 01/08/19 Range/Units 18:01 Troponin I < 0.03 (< 0.04) ng/mL - Impressions ITS Impressions Chest X-Ray 01/08/19 17:46 IMPRESSION: No acute process. D/ / Jacobo Maxwell MD / Jacobo Maxwell MD Interpreting Provider: Jacobo Maxwell MD - Summary of Assessment and Plan Summary of Assessment and Plan: 1.Atypical Chest pain: 2/3(Substernal/Alleviated with rest/Worsened with exertion) GERMAINE Score: 4 thus cardiology consultation. SL nitro did not improve the CP thus orderred TD. BB, Nitro, high intensity statin, Oxygen, ASA, morphine. Stress Test: Nuclear Stress Test, Troponin, EKG q6hour, Cardiac monitoring. 2.Uncontrolled T2DM: Endotool in the setting of ACS. restart home med in the AM. 3.Class 3 Obesity: Nutrition consult. 4. uncontrolled HTN: likely medication non compliance. Restarted home med Chronic medical dz: JOSÉ: BIPAP HLP:lipid panel CAD: restarted med. DVT prophylaxis: heparin Dispo: likely <2 day stay. - Time Spent With Patient Total time spent is greater than 37 minutes 50% in coordination of care (as documented) at patient's floor/unit and/or counseling patient: Greater than 35 minutes
[2019-01-08] MEDS ORDERED: Insulin Human Regular 100 UNIT in 0.9 % Sodium Chloride 100 ML IVC SCH (23:45)
[2019-01-08] MEDS ORDERED: 0.9 % Sodium Chloride 1,000 ML IVC SCH (23:45)
[2019-01-08] MEDS ORDERED: Insulin LISPRO 300 UNITS/3 ML VIAL SQ PRN (23:53)
[2019-01-08] MEDS ORDERED: *HR* Dextrose 50 % in Water (Syg) 50 ML SYRINGE IVP PRN (23:53)
[2019-01-09] MEDS: Morphine Sulfate 2 MG/ML SYRINGE IVP PRN ×5 (00:01→22:28)
[2019-01-09] MEDS ORDERED: Dextrose Gel 15 GM/37.5 ML TUBE PO PRN ×2 (01:08)
[2019-01-09] MEDS ORDERED: D5% in Water 1,000 ML IVC PRN (01:08)
[2019-01-09] MEDS: *HR* Heparin 5,000 UNIT/ML VIAL SQ SCH ×3 (01:12→17:21)
[2019-01-09 01:23] LABS: Basophils % 0.5 %; Eosinophils # 0.1 K/mcL (0.0-0.6); Hematocrit 45.3 % (37.5-50.1); Hemoglobin 15.2 g/dL (12.9-16.9); Immature Granulocytes % 0.4 % (0-4); Lymphocytes % 38.2 %; Mean Corpuscular HGB Conc 33.6 g/dL (31.6-35.5); Mean Corpuscular Hemoglobin 28.1 pg (28.0-33.3); Mean Corpuscular Volume 83.9 fL (83.0-100.0); Mean Platelet Volume 9.9 fL (9.4-12.4); Monocytes # 0.8 K/mcL (0.0-1.3); Monocytes % 9.9 %; Neutrophils # 3.9 K/mcL (1.6-8.9); Platelet Count 190 K/mcL (140-400); Red Cell Distribution Width 13.9 % (11.5-14.5); White Blood Count 7.9 K/mcL (4.3-11.1)
[2019-01-09 01:45] LABS: Chol/HDL Ratio 7.2 (0-4.9); Cholesterol 238 mg/dL (< 200); HDL Cholesterol 33 mg/dL (40-59); LDL Cholesterol,Calculated 148 mg/dL (0-99); Phosphorous 3.6 mg/dL (2.7-4.5); Triglycerides 284 mg/dL (< 150)
[2019-01-09 01:46] LABS: Troponin I < 0.03 ng/mL (< 0.04)
[2019-01-09 02:05] LABS: INR 0.9; Prothrombin Time 10.4 Seconds (9.4-12.1)
[2019-01-09] MEDS: Insulin LISPRO 300 UNITS/3 ML VIAL SQ SCH ×6 (03:57→21:47)
[2019-01-09] MEDS ORDERED: Regadenoson 0.4 MG/5 ML SYRINGE IVP ONE (06:23)
[2019-01-09] MEDS ORDERED: Insulin NPH 100 UNIT/ML (x5UNIT) SQ SCH (09:00)
[2019-01-09] MEDS ORDERED: Perflutren Lipid Microsphere 1.3 ML in 0.9 % Sodium Chloride 8.7 ML IVP ONE (09:38)
[2019-01-09] MEDS: Nitroglycerin 0.4 MG PATCH.TD24 TD SCH (10:35)
--- NOTE | 2019-01-09 11:10 | Electrocardiograph Report ---
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
--- NOTE | 2019-01-09 14:15 | Internal Med Progress Note ---
Hospitalist Progress Note - Encounter Date of Encounter: 01/09/19 Time of Encounter: 13:00 - Subjective Interval History: Mr. Potter is a 58 year old male with past medical history of type 2 diabetes, hyperlipidemia, history of CAD status post stent 10 years ago, and hypertension Presented to the ED for acute chest pain. Patient chest pain occurred suddenly substernal stabbing intermittent every 30 minutes lasting for 20 minutes radiating to the right shoulder. His CP exacerbated with position and exertion. He was admitted in the hospital and placed him on nurse monitoring. His serial troponin came back as negative. He denied any more active chest pain now. - Exam Vitals: Temp Pulse Resp BP Pulse Ox 97.9 F 91 15 134/80 95 01/09/19 11:08 01/09/19 11:08 01/09/19 11:08 01/09/19 11:08 01/09/19 11:08 Exam: Gen: Alert, awake, Oriented to time,place and person Chest: Diminished breath sounds B/L, No wheezing, No crackles, No rales Heart: S1S2+ RRR No murmurs Abd: Soft, NT, BS +, No organomegaly Ext: No edema, pulses are palpable, No calf tenderness Neuro : No acute focal neuro deficits noticed Skin: No rash. - Assessment and Plan (1) Chest pain Current Visit: Yes Status: Acute Assessment and Plan: So far serial troponins are negative No acute ischemic changes noticed on EKG since patient is high risk for ACS and go for nuclear stress test Due to his high BMI does need 2 days nuclear stress test continue home medication aspirin, Statin, metoprolol and SL Nitro (2) Hyperglycemia Current Visit: Yes Status: Acute Assessment and Plan: Uncontrolled BS Counseled about diet modifications Nutrition consulted started him on ISS ACHS at high grade d/c NPH insulin on Lispro 10 U TID will check HbA1C (3) CAD (coronary artery disease) Current Visit: No Status: Chronic Assessment and Plan: s/p PCI resumed all home medications (4) Diabetes Current Visit: No Status: Chronic Assessment and Plan: as above (5) Essential hypertension Current Visit: No Status: Chronic Assessment and Plan: stable BP resumed all home meds (6) Hyperlipidemia Current Visit: No Status: Chronic Assessment and Plan: Reviewed FLP.. 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 - Time Spent with Patient Total time spent is greater than 50% in coordination of care (as documented) at patient's floor/unit and/or counseling patient: Internal Medicine: Result - Labs CBC & Chem 7: 01/09/19 00:38 01/08/19 18:01 Labs: Short CBC 01/08/19 01/09/19 Range/Units 18:01 00:38 WBC 7.5 7.9 (4.3-11.1) K/mcL Hgb 15.8 15.2 (12.9-16.9) g/dL Hct 47.3 45.3 (37.5-50.1) % Plt Count 187 190 (140-400) K/mcL Neutrophils # 4.4 3.9 (1.6-8.9) K/mcL BMP 01/08/19 18:01 Sodium 135 L Potassium 4.5 Chloride 102 Carbon Dioxide 22 L BUN 23 H Creatinine 0.87 Glucose 502 H* Calcium 9.0 Cardiac Enzymes 01/08/19 01/09/19 Range/Units 18:01 00:38 Troponin I < 0.03 < 0.03 (< 0.04) ng/mL - ABG Interpretation ABG results: PT/INR, D-dimer PT 10.4 Seconds (9.4-12.1) 01/09/19 00:38 - Impressions Impressions Chest X-Ray 01/08/19 17:46 IMPRESSION: No acute process. D/ / Jacobo Maxwell MD / Jacobo Maxwell MD Interpreting Provider: Jacobo Maxwell MD Echocardiogram 01/09/19 00:09 Impressions: LVEF 60-65%. Grade I diastolic dysfunction. Grossly moderately dilated right ventricle with normal systolic function. No significant valvular dysfunction. Unable to estimate RVSP due to lack of TR jet. Left Ventricular Wall Motion: Rest Echo Findings All wall segments showed normal motion. Findings: Study Quality * Technically sub-optimal due to poor echocardiographic windows. ECG Findings * Sinus rhythm with BBB. Left Ventricle * LVEF 60-65%. * Normal LV chamber size and systolic function. * Grade I diastolic dysfunction. * Definity echo contrast was used. * Atypical septal motion consistent with bundle branch block. Right Ventricle * RV not well visualized, grossly moderately dilated right ventricle with normal systolic function. Left Atrium * Normal left atrial size. Right Atrium * Normal right atrial size. Interatrial Septum * Interatrial septum not well evaluated. Aortic Valve * Trileaflet aortic valve. * No aortic stenosis. * No aortic regurgitation. Mitral Valve * Normal mitral valve structure. * No mitral stenosis. * No mitral regurgitation. Tricuspid Valve * Normal tricuspid valve structure. * No tricuspid stenosis. * No tricuspid regurgitation. * Unable to estimate RVSP due to lack of TR jet. Pulmonic Valve * Pulmonic valve is not well visualized. * No pulmonic stenosis. * Trace pulmonic regurgitation. Aorta * Normally sized aortic root. Pericardium * The pericardium appears normal. IVC * The IVC is not well evaluated. Consult Discharge Plan - Plan Referrals: Oscar Larson MD [Primary Care Provider] - 01/16/19 10:40 am (you will see at this visit.) (1) Chest pain Qualifiers: Chest pain type: unspecified Qualified Code(s): R07.9 - Chest pain, unspecified (3) CAD (coronary artery disease) Qualifiers: Coronary Disease-Associated Artery/Lesion type: [place] artery [place] vs. 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
[2019-01-09 18:58] LABS: Bilirubin,Urine Negative (Negative); Blood,Urine Negative (Negative); Clarity,Urine Clear (Clear); Color,Urine Yellow (Yellow); Glucose,Urine (UA) >=1000 mg/dL (Normal); Ketones,Urine Negative (Negative); Leukocyte Esterase,Urine Negative (Negative); Nitrite,Urine Negative (Negative); Protein,Urine Trace mg/dL (Neg-Trace); Specific Gravity,Urine 1.019 (1.010-1.025); Urobilinogen,Urine Normal (Normal)
[2019-01-10] MEDS: *HR* Heparin 5,000 UNIT/ML VIAL SQ SCH ×4 (01:24→23:26)
[2019-01-10 02:12] LABS: Hematocrit 46.5 % (37.5-50.1); Hemoglobin 15.2 g/dL (12.9-16.9); Mean Corpuscular HGB Conc 32.7 g/dL (31.6-35.5); Mean Corpuscular Hemoglobin 27.9 pg (28.0-33.3); Mean Corpuscular Volume 85.3 fL (83.0-100.0); Mean Platelet Volume 9.5 fL (9.4-12.4); Platelet Count 195 K/mcL (140-400); Red Blood Count 5.45 M/mcL (4.19-5.50); Red Cell Distribution Width 13.7 % (11.5-14.5); White Blood Count 8.1 K/mcL (4.3-11.1)
[2019-01-10 02:32] LABS: BUN/Creatinine Ratio 24 (6-26); Blood Urea Nitrogen 16 mg/dL (6-20); Calcium 8.5 mg/dL (8.6-10.3); Carbon Dioxide 25 mEq/L (23-29); Chloride 103 mEq/L (98-107); Glucose 181 mg/dL (70-105); Osmolality,Calculated 288 (280-300); Potassium 3.9 mEq/L (3.5-5.1); Sodium 136 mEq/L (136-145); eGFR For African Americans > 60 (> 60); eGFR For Non-African Americans > 60 (> 60)
[2019-01-10] MEDS: Isosorbide MONOnitrate (24 HR) 60 MG TAB.ER.24H PO SCH (08:07)
[2019-01-10] MEDS: Diltiazem CD (24hr) 240 MG CAPSULE PO SCH (08:07)
[2019-01-10] MEDS: Nitroglycerin 0.4 MG PATCH.TD24 TD SCH (08:08)
[2019-01-10] MEDS: Insulin LISPRO 300 UNITS/3 ML VIAL SQ SCH ×7 (08:09→20:34)
[2019-01-10 08:29] LABS: Estimated Average Glucose 292 mg/dl
[2019-01-10] MEDS: traMADol 50 MG TABLET PO PRN ×2 (12:34→20:32)
--- NOTE | 2019-01-10 14:16 | Cardiology Consult Note ---
<Sunny Arnett - Last Filed: 01/10/19 14:24> Date of Encounter: 01/10/19 Time of Encounter: 14:15 Assessment and Plan (1) Chest pain Current Visit: Yes Status: Acute Per Cardiology: Atypical chest pain. Troponins negative. Echo with preserved EF. Stress test negative for ischemia. I had lengthy discussion with patient and regarding medical management and outpatient follow-up versus further ischemic evaluation. Discussed and reviewed with Dr. Huntley. Patient and have decided proceed with left heart catheterization. Plan for catheterization tomorrow and further recommendations to follow. All questions answered. Patient is willing to rescind his DNR status for 24 hours. Qualifiers: Chest pain type: unspecified Qualified Code(s): R07.9 - Chest pain, unspecified (2) CAD (coronary artery disease) Current Visit: No Status: Chronic Per Cardiology: Known history of CAD with stenting in 2008 at [facility]. Apparent left heart catheterization at [facility] in 2013 as reported no intervention. On beta destin, statin, and long-acting nitrate. Qualifiers: Coronary Disease-Associated Artery/Lesion type: [place] artery [place] vs. transplanted heart: [place] heart Associated angina: without angina Qualified Code(s): I25.10 - Atherosclerotic heart disease of [place] coronary artery without angina pectoris Discussion w patient/family: The assessment and plan as outlined above was discussed with the patient and/or family members who expressed understanding and agreement. All questions were answered. Thank you for involving us in the care of your patient. Please call with any questions. History of Present Illness Consult date: 01/10/19 Consult reason: CP, Per patient request Chief complaint: CP History of present illness: Mr. Potter is a 58 year old male with a relevant past medical history of DM 2, CAD, HTN, obesity, HLD, PAD. Cardiology consult to evaluate chest pain symptoms and evaluation for potential catheterization. Seen today with at bedside. Patient reports prior to Monday evening occasional intermittent stabbing sensations to his chest that lasts for a few seconds and subsides. He reports Monday evening he drank one beer and was eating grilled chicken. He indicates developed midsternal dull pain "where his stent is located ". He reports the next day he developed diaphoresis with some lightheadedness and shortness of breath. He denies any syncope or falls. Denies any active bleeding or blood loss. Currently reports some mild midsternal chest discomfort unchanged with palpation or deep inspiration. Repo rts last catheterization in 2013 and previous stenting in 2008. Additionally, reports evaluating potential gastric bypass surgery in [place] and has pending cardiology evaluation as outpatient. Past Med Surg Social Fam HX - Past Medical History Attestation: Yes The following information was validated with the patient. Source: patient, old records reviewed, obtained from family Medical history: arthritis, asthma, CHF, coronary artery disease, diabetes, hyperlipidemia, hypertension, myocardial infarction, peripheral artery disease, renal disease Psychiatric history: anxiety, depression - Past Surgical History Surgical History: orthopedic, other, other Additional surgical history: 2 toes amputations on left foot - Social History Smoking Status: Never smoker Smokeless Tobacco Status: No Alcohol use: occasionally Drug use: none - Family History Father Adopted: No Family Member Ethnicity: Non- Living Status: Hx Family Cardiac Disorders: Yes (multiple heart attacks pacemaker) Hx Family Respiratory Disorders: Yes Hx Family Cancer: Yes Hx Family GI Disorders: No Hx Family Endocrine Disorder: No Hx Family Neurologic Disorders: Yes Hx Family HEENT Disorders: No Hx Family Autoimmune Disorders: No Medications and Allergies Mirtazapine [Remeron] 30 mg PO HS 03/23/15 [History] Diltiazem CD (24hr) [Cardizem CD] 240 mg PO DAILY 05/06/15 [History] Metoprolol [Lopressor] 25 mg PO BID #60 tablet 05/08/15 [Rx] Insulin NPH Human Isophane [Novolin N] 40 - 50 units SQ BID 04/05/17 [History] Insulin Regular, Human [Novolin R] 40 units SQ BID 04/05/17 [History] Atorvastatin [Lipitor] 40 mg PO HS #30 tablet 04/07/17 [Rx] Isosorbide MONOnitrate (24 HR) [Imdur] 60 mg PO DAILY #30 tab.er.24h 04/07/17 [Rx] Aspirin Enteric Coated [Aspirin EC] 325 mg PO DAILY 01/09/19 [History] Tramadol HCl [Ultram] 50 mg PO TID PRN 01/09/19 [History] Allergy/AdvReac Type Severity Reaction Status Date / Time No Known Allergies Allergy Verified 04/05/17 14:19 All Systems Review: The remainder of the systems were reviewed and are negative - Cardiovascular Cardiovascular: as per HPI, chest pain at rest, diaphoresis, dyspnea at rest, lightheadedness Physical Examination Vital Signs, Last 4 Hours Temp Pulse Resp BP Pulse Ox 01/10/19 11:38 97.7 F 95 20 121/75 92 General: Conversant, No Apparent Distress HEENT: Atraumatic, Normocephaly, Mucus Membranes Moist Neck: No JVD, Normal carotid pulses Cardiac: Reg Rate and Rhythm, Normal S1 and S2, No Murmur Lungs: Normal Breath Sounds, No Wheeze, Rales, Rhonchi Neuro: Alert and responsive, No focal deficits noted Abdomen: Soft, Non-Tender, Other (obese) Skin: No rashes noted on visualized skin Musculoskeletal: No Chest Wall Tenderness Extremities: No Clubbing, No Cyanosis, No Edema, Normal Pulses Results 01/10/19 01:47 01/10/19 01:47 Lab Results Laboratory Tests 01/08/19 01/08/19 01/09/19 18:01 18:01 00:38 Hgb Hct INR 0.9 Creatinine Est GFR (Non-Af Amer) Glucose 502 H* Hemoglobin A1c Magnesium Troponin I < 0.03 B-Natriuretic Peptide LDL Cholesterol, Calc 01/09/19 01/09/19 01/10/19 00:38 00:38 01:47 Hgb 15.2 Hct 46.5 INR Creatinine Est GFR (Non-Af Amer) Glucose Hemoglobin A1c Magnesium Troponin I < 0.03 B-Natriuretic Peptide 8 LDL Cholesterol, Calc 148 H 01/10/19 01/10/19 01:47 01:47 Hgb Hct INR Creatinine 0.68 L Est GFR (Non-Af Amer) > 60 Glucose Hemoglobin A1c 11.8 H Magnesium 2.0 Troponin I B-Natriuretic Peptide LDL Cholesterol, Calc ITS Impressions Chest X-Ray 01/08/19 17:46 IMPRESSION: No acute process. D/ / Jacobo Maxwell MD / Jacobo Maxwell MD Interpreting Provider: Jacobo Maxwell MD Echocardiogram 01/09/19 00:09 Impressions: LVEF 60-65%. Grade I diastolic dysfunction. Grossly moderately dilated right ventricle with normal systolic function. No significant valvular dysfunction. Unable to estimate RVSP due to lack of TR jet. Left Ventricular Wall Motion: Rest Echo Findings All wall segments showed normal motion. Findings: Study Quality * Technically sub-optimal due to poor echocardiographic windows. ECG Findings * Sinus rhythm with BBB. Left Ventricle * LVEF 60-65%. * Normal LV chamber size and systolic function. * Grade I diastolic dysfunction. * Definity echo contrast was used. * Atypical septal motion consistent with bundle branch block. Right Ventricle * RV not well visualized, grossly moderately dilated right ventricle with normal systolic function. Left Atrium * Normal left atrial size. Right Atrium * Normal right atrial size. Interatrial Septum * Interatrial septum not well evaluated. Aortic Valve * Trileaflet aortic valve. * No aortic stenosis. * No aortic regurgitation. Mitral Valve * Normal mitral valve structure. * No mitral stenosis. * No mitral regurgitation. Tricuspid Valve * Normal tricuspid valve structure. * No tricuspid stenosis. * No tricuspid regurgitation. * Unable to estimate RVSP due to lack of TR jet. Pulmonic Valve * Pulmonic valve is not well visualized. * No pulmonic stenosis. * Trace pulmonic regurgitation. Aorta * Normally sized aortic root. Pericardium * The pericardium appears normal. IVC * The IVC is not well evaluated. Active Medications Al Hydrox/Mg Hydrox/Simethicone (Maalox) 15 ml PO Q6H PRN PRN Reason: Dyspepsia Stop: 07/10/19 21:59 Atorvastatin Calcium (Lipitor) 40 mg PO HS KATYA Stop: 07/11/19 21:01 Last Admin: 01/09/19 21:44 Dose: 40 mg Documented by: Dextrose/Water (Dextrose 50% (Syg)) 25 ml IVP [id number] PRN PRN Reason: Hypoglycemia Stop: 07/10/19 23:54 Diltiazem HCl (Cardizem Cd) 240 mg PO DAILY KATYA Stop: 07/12/19 09:01 Last Admin: 01/10/19 08:07 Dose: 240 mg Documented by: Docusate Sodium (Colace) 100 mg PO BID KATYA Stop: 07/11/19 21:01 Last Admin: 01/10/19 08:07 Dose: 100 mg Documented by: Glucagon (Glucagen) 1 mg IM ONCE PRN PRN Reason: Hypoglycemia Stop: 07/11/19 01:09 Glucose (Gluctose) 15 gm PO ONCE PRN PRN Reason: Hypoglycemia Stop: 07/11/19 01:09 Glucose (Gluctose) 30 gm PO ONCE PRN PRN Reason: Hypoglycemia Stop: 07/11/19 01:09 Heparin Sodium (Porcine) (Heparin) 5,000 unit SQ Q8H [facility] Stop: 07/11/19 00:31 Last Admin: 01/10/19 09:10 Dose: 5,000 unit Documented by: Dextrose (Dextrose 5%) 1,000 mls @ 100 mls/hr IVC .Q10H PRN PRN Reason: HYPOGLYCEMIA Stop: 07/11/19 01:09 Insulin Human Lispro (Humalog) 10 units SQ TIDAC [facility] Stop: 07/11/19 16:31 Last Admin: 01/10/19 12:20 Dose: 10 units Documented by: Insulin Human Lispro (Humalog) 0 units SQ ACHS [facility]; Protocol Stop: 07/11/19 16:31 Last Admin: 01/10/19 12:20 Dose: 10 units Documented by: Isosorbide Mononitrate (Imdur) 60 mg PO DAILY [facility] Stop: 07/12/19 09:01 Last Admin: 01/10/19 08:07 Dose: 60 mg Documented by: Metoprolol Tartrate (Lopressor) 25 mg PO BID [facility] Stop: 07/10/19 23:46 Last Admin: 01/10/19 08:08 Dose: 25 mg Documented by: Morphine Sulfate (Morphine) 2 mg IVP Q2H PRN; Protocol PRN Reason: Chest Pain Stop: 07/10/19 23:44 Last Admin: 01/09/19 22:28 Dose: 2 mg Documented by: Naloxone HCl (Narcan) 0.4 mg IVP Q2MPRN PRN PRN Reason: SEE COMMENTS Stop: 07/10/19 21:59 Nitroglycerin (Nitroglycerin) 0.4 mg SL Q5MPRN PRN PRN Reason: Chest Pain Stop: 07/10/19 18:17 Last Admin: 01/08/19 18:47 Dose: 0.4 mg Documented by: Nitroglycerin (Nitroglycerin) 0.4 mg TD 0730 [facility] Stop: 07/11/19 07:31 Last Admin: 01/10/19 08:08 Dose: Not Given Documented by: Ondansetron HCl (Zofran Odt) 4 mg SL Q8H PRN PRN Reason: Nausea And Vomiting Stop: 07/10/19 21:59 Tramadol HCl (Ultram) 50 mg PO TID PRN PRN Reason: Moderate Pain Stop: 07/11/19 14:12 Last Admin: 01/10/19 12:34 Dose: 50 mg Documented by: - Imaging and Cardiology Stress Test: report reviewed Echo: report reviewed Cardiac cath: pending - EKG Interpretation EKG results cardiology: personally reviewed, normal ECG, sinus rhythm, no diagnostic ischemia Consult Discharge Plan - Plan Referrals: Oscar Larson MD [Primary Care Provider] - 01/16/19 10:40 am (you will see at this visit.) <Yaakov Huntley - Last Filed: 01/10/19 20:32> Date of Encounter: 01/10/19 - Attending Attestation I have personally performed a face to face evaluation on this patient. I have reviewed and agree with the care plan. History and Exam by me shows: 58-year-old male morbidly obese with multiple cardiac risk factors and poorly controlled diabetes with hemoglobin A1c of 11.8 presents with chest pain found to have unremarkable stress test with a preserved ejection fraction confirmed on echocardiogram. Patient and both concerned with exertional shortness of breath and constant atypical chest pain. Patient is status post-PCI in 2008 and LHC in 2013 which was unremarkable. Due to his poorly controlled diabetes and high risk of coronary disease I do believe a LHC is reasonable. Risks benefits and alternatives were discussed with the patient and he agrees to proceed Assessment and Plan Discussion w patient/family: The assessment and plan as outlined above was discussed with the patient and/or family members who expressed understanding and agreement. All questions were answered. Thank you for involving us in the care of your patient. Please call with any questions. History of Present Illness History of present illness: Mr. Potter is a 58 year old male All Systems Review: The remainder of the systems were reviewed and are negative Physical Examination Vital Signs, Last 4 Hours Temp Pulse Resp BP Pulse Ox 01/10/19 20:03 98.1 F 88 16 146/81 94 Results 01/10/19 01:47 01/10/19 01:47 Lab Results 01/10/19 01/10/19 01:47 01:47 WBC 8.1 Hgb 15.2 Hct 46.5 Plt Count 195 Sodium 136 Potassium 3.9 Chloride 103 Carbon Dioxide 25 BUN 16 Creatinine 0.68 L Glucose 181 H Calcium 8.5 L Magnesium 2.0
--- NOTE | 2019-01-10 14:28 | Internal Med Progress Note ---
Hospitalist Progress Note - Encounter Date of Encounter: 01/10/19 Time of Encounter: 14:28 - Subjective Interval History: Patient was seen and examined bedside. He still complaining intermittent chest pain with exertion and at resting sometimes. He denied any shortness of breath. - Exam Vitals: Temp Pulse Resp BP Pulse Ox 97.7 F 95 20 121/75 92 01/10/19 11:38 01/10/19 11:38 01/10/19 11:38 01/10/19 11:38 01/10/19 11:38 Exam: Gen: Alert, awake, Oriented to time,place and person Chest: Diminished breath sounds B/L, No wheezing, No crackles, No rales Heart: S1S2+ RRR No murmurs Abd: Soft, NT, BS +, No organomegaly Ext: No edema, pulses are palpable, No calf tenderness Neuro : No acute focal neuro deficits noticed Skin: No rash. - Assessment and Plan (1) Chest pain Current Visit: Yes Status: Acute Assessment and Plan: So far serial troponins are negative No acute ischemic changes noticed on EKG since patient is high risk for ACS, he did go for nuclear stress test His nuclear stress test came back as negative for ischemia / infarction continue home medication aspirin, Statin, metoprolol and SL [employer] his Lipitor to 80 mg since his LDL @ 148 Consulted cardiology since he is still c.o chest pain Card is planning on [facility] in AM (2) Hyperglycemia Current Visit: Yes Status: Acute Assessment and Plan: Well controlled BS now with current regimen his HbA1C 11.8 Cont ISS ACHS at high grade d/c NPH insulin Con Lispro 6 U TID Started him on Levemir 10 U BID Counseled about diet modifications Nutrition consulted (3) CAD (coronary artery disease) Current Visit: No Status: Chronic Assessment and Plan: s/p PCI resumed all home medications (4) Diabetes Current Visit: No Status: Chronic Assessment and Plan: as above (5) Essential hypertension Current Visit: No Status: Chronic Assessment and Plan: stable BP resumed all home meds (6) Hyperlipidemia Current Visit: No Status: Chronic Assessment and Plan: Reviewed FLP.. 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 - Time Spent with Patient Total time spent is greater than 50% in coordination of care (as documented) at patient's floor/unit and/or counseling patient: Internal Medicine: Result - Labs CBC & Chem 7: 01/10/19 01:47 01/10/19 01:47 Labs: Short CBC 01/10/19 Range/Units 01:47 WBC 8.1 (4.3-11.1) K/mcL Hgb 15.2 (12.9-16.9) g/dL Hct 46.5 (37.5-50.1) % Plt Count 195 (140-400) K/mcL BMP 01/10/19 01:47 Sodium 136 Potassium 3.9 Chloride 103 Carbon Dioxide 25 BUN 16 Creatinine 0.68 L Glucose 181 H Calcium 8.5 L Urine 01/09/19 Range/Units 18:40 Urine Color Yellow (Yellow) Urine Clarity Clear (Clear) Urine pH 6.0 (5.0-8.0) pH Units Ur Specific [place] 1.019 (1.010-1.025) Urine Protein Trace (Neg-Trace) mg/dL Urine Glucose (UA) >=1000 H (Normal) mg/dL - ABG Interpretation ABG results: PT/INR, D-dimer PT 10.4 Seconds (9.4-12.1) 01/09/19 00:38 Consult Discharge Plan - Plan Referrals: Oscar Larson MD [Primary Care Provider] - 01/16/19 10:40 am (you will see at this visit.) ___ (1) Chest pain Qualifiers: Qualified Code(s): R07.9 - Chest pain, unspecified (3) CAD (coronary artery disease) Qualifiers: Qualified Code(s): I25.10 - Atherosclerotic heart disease of [place] coronary artery without angina pectoris (4) Diabetes Qualifiers: Qualified Code(s): E11.42 - Type 2 diabetes mellitus with diabetic polyneuropathy; Z79.4 - senior care (current) use of insulin (6) Hyperlipidemia Qualifiers: Qualified Code(s): E78.2 - Mixed hyperlipidemia
--- NOTE | 2019-01-10 14:55 | Electrocardiograph Report ---
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
[2019-01-10] MEDS: Insulin DETEMIR 100 UNIT/ML X5UNITS SQ SCH (20:33)
[2019-01-10] MEDS ORDERED: Acetaminophen 325 MG TABLET PO PRN (23:33)
--- NOTE | 2019-01-11 08:27 | Event Note ---
Date of Encounter: 01/11/19 Time of Encounter: 08:30 - Cardiology Event Note Laboratory Tests 01/10/19 01/10/19 01:47 01:47 Hgb 15.2 Hct 46.5 Creatinine 0.68 L Est GFR (Non-Af Amer) > 60 Patient currently chest pain-free. Patient are agreeable to proceed with catheterization. Again, agreeable to rescind DNR status for 24 hours for procedure.
[2019-01-11] MEDS: Insulin LISPRO 300 UNITS/3 ML VIAL SQ SCH ×6 (08:30→17:08)
[2019-01-11] MEDS: Nitroglycerin 0.4 MG PATCH.TD24 TD SCH (08:31)
[2019-01-11] MEDS: *HR* Heparin 5,000 UNIT/ML VIAL SQ SCH ×2 (08:45→16:56)
[2019-01-11] MEDS: Diltiazem CD (24hr) 240 MG CAPSULE PO SCH (10:45)
[2019-01-11] MEDS: Isosorbide MONOnitrate (24 HR) 60 MG TAB.ER.24H PO SCH (10:45)
[2019-01-11] MEDS: Insulin DETEMIR 100 UNIT/ML X5UNITS SQ SCH (10:48)
--- NOTE | 2019-01-11 10:53 | Pre-Sedation Evaluation ---
Pre-sedation evaluation - Pre-sedation checklist Date of procedure: 01/11/19 Procedure: [facility] Recent Vitals: Last Vital Signs Temp 97.8 F 01/11/19 06:48 Pulse 78 01/11/19 06:48 Resp 16 01/11/19 06:48 BP 125/74 01/11/19 06:48 Pulse Ox 95 01/11/19 06:48 H&P (including ROS) documented in medical record: Yes Previous reaction to sedatives/anesthetics: No Dietary Status: NPO after Midnight Airway Assessment: Patient can open mouth completely, TMJ function normal ASA Classification *see protocol: CLASS II-Mild systemic disease Plan of Care: Pt appropriate candidate for procedure/moderate/conscious sedation, Risks/benefits of procedure/sedation discussed w/ patient/family Cardiac Registry (Cardio Only) - Functional Capacity Functional Capacity: >=4 METS with symptoms - Clincal Frailty Scale Clinical Frailty Scale: Managing Well
--- NOTE | 2019-01-11 11:39 | Electrocardiograph Report ---
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
--- NOTE | 2019-01-11 12:02 | Event Note ---
Date of Encounter: 01/11/19 Time of Encounter: 12:00 HAS-BLED Score - Score Medication usage predisposing to bleeding: Antiplatelet agents, NSAIDs, Anticoagulants Score: 1
[2019-01-11] MEDS: traMADol 50 MG TABLET PO PRN (13:12)
[2019-01-11] MEDS ORDERED: Nitroglycerin 1,000 MCG/10 ML VIAL IV ONE (13:16)
[2019-01-11] MEDS ORDERED: 0.9 % Sodium Chloride 1,000 ML ONE (13:16)
[2019-01-11] MEDS ORDERED: Iopamidol 125 ML INFUS..BTL ONE (13:16)
[2019-01-11] MEDS ORDERED: *HR* Heparin 10,000 UNIT/10 ML VIAL ONE (13:16)
[2019-01-11] MEDS ORDERED: Heparin 1,000 UNITS/500 mL 500 ML ONE (13:16)
[2019-01-11] MEDS ORDERED: *HR* Midazolam HCl 2 MG/2 ML VIAL ONE (13:34)
[2019-01-11] MEDS ORDERED: *HR* FentaNYL (PF) 100 MCG/2 ML VIAL ONE (13:35)
[2019-01-11] MEDS ORDERED: Verapamil 5 MG/2 ML VIAL ONE (13:45)
--- NOTE | 2019-01-11 14:13 | Event Note ---
Date of Encounter: 01/11/19 Time of Encounter: 14:15 - Cardiology Event Note Per discussion with Dr. Patel, catheterization completed and patient with diffuse distal disease with recommendations for medical management. We will titrate long-acting nitrate area consider addition of Ranexa. Cardiology signed off, reconsult as needed, follow-up arranged.
--- NOTE | 2019-01-11 14:25 | Invasive Diagnostic Lab Proc ---
Name: Fer Potter Date of Study: 01/11/2019 Date: 1960 Ht: 66.1in Medical Record#: [id number] Age: 58 Wt: 352.74lb Gender: Male BSA: 2.55 Order #: [id number] BMI: 56.69 Physicians Procedure Physician: Colby Patel MD, [facility] Referring MD: Referring MD: Staff Name Position Time In Zac Suarez RN Scheduling Representative 01:36 PM Ceci Breen RT (R) Monitor 01:36 PM Arabella Huerta RT (R) Scrub 01:37 PM Jean Carlos, Natalie RT (R) Scrub 01:37 PM Procedures Performed Procedure L HRT ARTERY/VENTRICLE ANGIO Pre-Procedure Checklist Informed consent is complete signed and on chart. H&P is on chart. ID band is on and ID verified with patient. Patient NPO for procedure The procedure was described for the patient and questions were answered. Blood Pressure: 125/74 ECG is on chart. Rhythm: NSR Plan of Care Patient will tolerate the procedure without complications. Adequate level of comfort will be maintained. Hemodynamics will remain stable Patient will recover from procedure without complications. Respiratory function will be maintained. Cardiac rhythm will remain stable. Patient temperature will be maintained. Patient and/or family have verbalized understanding of the procedure. Patient Education Chief Complaint/Reason for Test: Cardiac Cath Developmental Category: Adult (18-64 years) Developmentally Appropriate for Age: Yes Learning Barriers: None Education Needs: Procedure Education Method: Verbal Information Taught: Cardiac Cath Educational Evaluation: Able to repeat information Intravenous Access Time IV Size Location DC'd Fluid/Drip Rate Units RN 18g 1 /" Patent On Arrival Rt Arm 0.9NaCl 50 ml/hr Zac Suarez RN Allergies No Known Allergies Vital Signs Time BP (mmHg) HR (bpm) O2 Sat. RR (bpm) LOC 125 / 74 78 95 % 16 5 = Fully awake and oriented or at pre-proc level 01:43 PM 139 / 89 56 95 % 17 01:47 PM 139 / 84 80 98 % 28 01:52 PM 119 / 77 38 97 % 20 01:57 PM 133 / 87 41 97 % 27 02:02 PM 125 / 76 81 97 % 20 02:07 PM 127 / 75 20 97 % 19 Procedural Medications Time Medication Dose Units Method Given By 01:39 PM Oxygen 2 L/min nasal cannula Zac Suarez RN 01:39 PM Versed 2 mg Intravenous AndZac mars RN 01:40 PM Fentanyl 50 mcg Intravenous Zac Suarez RN 01:51 PM Lidocaine 2% 1 ml Subcutaneous Colby Patel MD, [facility] 01:52 PM Heparin 4000 units Nitroglycerin 200 mcg Verapamil 2.5 mg Intraarterial Colby Patel MD, [facility] ASA Classification: CLASS II- Mild systemic disease (i.e. well-controlled diabetes, hypertension, asthma, cigarette smoking) Rafael Score Preprocedure Postprocedure Activity 2- Moves 4 extremities sustained head lift Activity 2- Moves 4 extremities sustained head lift Circulation 2- SBP +/= 20 points of pre-anesthetic level Circulation 2- SBP +/= 20 points of pre-anesthetic level Consciousness 2- Awake and alert oriented x 3 Consciousness 2- Awake and alert oriented x 3 O2 Saturation 2- Able to maintain O2 satruation of 92% on room air O2 Saturation 2- Able to maintain O2 satruation of 92% on room air Respiratory 2- Able to deep breathe and cough well Respiratory 2- Able to deep breathe and cough well Total Score 10 Total Score 10 Contrast Agent: Isovue Diagnostic Contrast: 102 ml Total Contrast: 102 ml Fluoro Dose: 38 mGy Procedure Log Time Note Enter By 01:36 PM Pt arrived to cath lab technologist 2 at 13:36 [facility] 01:36 PM Zac Suarez RN Position: Scheduling Representative Time in: 13:36 [facility] :37 PM Ceci Breen RT (R) Position: Monitor Time in: 13:36 [facility] :37 PM Arabella Huerta RT (R) Position: Scrub Time in: 13:37 [facility] :37 PM Natalie Evangelista RT (R) Position: Scrub Time in: 13:37 [facility] :37 PM Patient charges- Angio tray pack, Navilyst 3mm J, Pulse Oximetry and ACIST tubing and transducer [facility]:37 PM Physician arrived 13:37 [facility] :37 PM Tc and cornell completed [facility]:37 PM Sign in performed according to hospital policy. Informed consent was obtained. [facility]:37 PM Procedure start 13:39 [facility] 01:38 PM ASA Class CLASS II- Mild systemic disease (i.e. well-controlled diabetes, hypertension, asthma, cigarette smoking) [email or web address] :39 PM Time: 13:39 Oxygen on at 2 L/min per nasal cannula by Zac Suarez RN [facility] :39 PM Hair removed from procedure site in holding area using clippers. Right wrist and Right groin prepped with Chloraprep by Pam Beltran (R), then patient was draped. Skin intact. :39 PM Time: 13:39 Versed 2 mg Intravenous Given by Zac Suarez RN [facility] 01:40 PM Time: 13:40 Fentanyl 50 mcg Intravenous Given by Zac [facility]arez [facility] PM Vitals capture started with the following parameters, Patient=Adult, Interval=5 min, Initial Ekjgziqu=765 mmHg, Deflation Rate=3 mmHg, Cuff placed on Right Arm 01:41 PM Recorded ECG: HR=33 Condition=Condition 1 01:43 PM HR=56 bpm, AWIW=189/89 mmhg, SpO2=95.0 %, Resp=17 B/min, Comment=SR 01:46 PM Pressure channel 1 zeroed. 01:47 PM HR=80 bpm, WTYB=817/84 mmhg, SpO2=98.0 %, Resp=28 B/min, Comment=SR 01:47 PM Recorded ECG: HR=63 Condition=Condition 1 01:48 PM Time out was performed according to hospital policy. Conscious sedation and anesthesia was achieved (see medication log with in this report above) [email or web address] 01:51 PM Pressure channel 1 zeroed. 01:51 PM Time: 13:51 1 ml Lidocaine 2% to right radial Subcutaneous Given by Colby Patel MD, [email or web address] 01[facility] PM Access obtained by percutaneous puncture. 6Fr 10cm Terumo Glidesheath sheath placed in right Radial artery. [id number] [email or web address] 01:52 PM HR=38 bpm, FETK=666/77 mmhg, SpO2=97.0 %, Resp=20 B/min, Comment=SR 01:53 PM Time: 13:52 Patient given 4,000 units Heparin, 200 mcg Nitroglycerin, and 2.5 mg Verapamil Intraarterial by Colby Patel MD, [facility]. This is given to reduce risk of vessel spasm and thrombosis. [email or web address] 01:53 PM 0.035 260cm Navilyst 3mmJ wire [id number] [email or web address] 01:53 PM 5Fr FL 4 catheter inserted over the wire DN [email or web address] 01:54 PM Pressure channel 1 zeroed. 01:54 PM Wire removed [email or web address] 01:54 PM 0.035 150cm VSI Pino-Torque wire [id number] [email or web address] 01:56 PM LCA angiography performed in multiple views. [email or web address] 01:57 PM HR=41 bpm, USDE=993/87 mmhg, SpO2=97.0 %, Resp=27 B/min, Comment=SR 01:57 PM Recorded Pressure: Ao, HR=63, Condition=Condition 1 (Aorta) Ao 123/94/109 02:00 PM Catheter removed [email or web address] 02:00 PM 5Fr FR 4 catheter inserted over the wire DN [email or web address] 02:00 PM RCA angiography performed in multiple views. [email or web address] 02:00 PM Lesion found in Mid LAD. Pre Stenosis: 30 Pre GERMAINE Flow: 3: Complete and Brisk Flow/Perfusion [email or web address] 02:00 PM Lesion found in Distal LAD. Pre Stenosis: 80 Pre GERMAINE Flow: 3: Complete and Brisk Flow/Perfusion [email or web address] 02:01 PM Lesion found in Mid Circumflex. Pre Stenosis: 40 Pre GERMAINE Flow: 3: Complete and Brisk Flow/Perfusion [email or web address] 02:01 PM Lesion found in Distal Circumflex. Pre Stenosis: 60 Pre GERMAINE Flow: 3: Complete and Brisk Flow/Perfusion [email or web address] 02:01 PM Lesion found in 1st Marginal. Pre Stenosis: 30 Pre GERMAINE Flow: 3: Complete and Brisk Flow/Perfusion [email or web address] 02:02 PM HR=81 bpm, DHFL=434/76 mmhg, SpO2=97.0 %, Resp=20 B/min, Comment=SR 02:03 PM Recorded Pressure: Ao, HR=?, Condition=Condition 1 (Aorta) Ao ?/?/? 02:03 PM Recorded Pressure: Ao, HR=77, Condition=Condition 1 (Aorta) Ao 130/97/115 02:04 PM Lesion found in Proximal RCA. Pre Stenosis: 30 Pre GERMAINE Flow: 3: Complete and Brisk Flow/Perfusion [email or web address] 02:04 PM Coronary Dominance: right [email or web address] 02:04 PM Lesion found in Right PDA. Pre Stenosis: 90 Pre GERMAINE Flow: 2: Partial Flow/Perfusion (> 1 but < 3) [email or web address] 02:04 PM Catheter removed [email or web address] 02:04 PM 5Fr Pigtail catheter inserted over the wire [facility] [email or web address] 02:04 PM Catheter crossed the aortic valve and was selectively placed in the left ventricle. Pressures recorded on pullback for left heart catheterization. [email or web address] 02:06 PM Recorded Pressure: LV, HR=32, Condition=Condition 1 (Left Ventricle) LV 133/23/29 02:06 PM Recorded Pressure: LV, HR=10, Condition=Condition 1 (Left Ventricle) LV ?/?/? 02:06 PM Recorded Pressure: LV, HR=27, Condition=Condition 1 (Left Ventricle) LV 148/-3/29 02:06 PM Bolus angiogram of left Ventricle complete: 12 ml/sec for a total of 35 mls [email or web address] 02:07 PM HR=20 bpm, ZGXN=123/75 mmhg, SpO2=97.0 %, Resp=19 B/min, Comment=SR 02:07 PM Recorded Pressure: LV, HR=23, Condition=Condition 1 (Left Ventricle) LV 135/42/10 02:07 PM Catheter removed [email or web address] 02:08 PM Procedure completed at 14:08 01/11/2019 [email or web address] 02:08 PM Did you address GERMAINE flow and Dominance? YesCoronary Dominance: right [email or web address] 02:09 PM Sign out completed: Radiation Dose 421.17 mGy, 38.5 Gy/cm2 Fluoro Time: 3.6 Isovue 370 - 200ml contrast 102 ml given by Colby Patel MD, [facility]. Complications: None. 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 Sedation minutes 30. Cardiac Rehab Consult needed: No. Confirmed administered medications: Yes [email or web address] 02:09 PM Isovue 370 - 200ml,1 Bottle(s) used. [email or web address] 02:09 PM Arterial sheath pulled, Vasc Band closure device used and was Successful S/N. [email or web address] 02:10 PM 15 ml air in Vasc Band. [email or web address] 02:10 PM Estimated Blood Loss: minimal [email or web address] 02:10 PM Post ECG NSR [email or web address] 02:10 PM Post Blood Pressure 127/75 [email or web address] 02:10 PM 14:10 Post Pulses Rt Radial 1+ [email or web address] 02:10 PM Information taught Cardiac Cath and Vasc Band [email or web address] 02:10 PM Education needs Procedure, Plan of Care, and Disease Process [email or web address] 02:10 PM Learning barriers :None [email or web address] 02:10 PM Education Methods Verbal [email or web address] 02:10 PM Education evaluation Able to repeat information [email or web address] 02:10 PM Site status No bleeding/ No Hematoma - Rt Wrist as reported by Arabella Huerta RT (R) at 14:10 [email or web address] 02:10 PM Delay to floor No [email or web address] 02:11 PM Patient out of room: 14:10 [email or web address] 02:11 PM Family placed in consult room. [email or web address] 02:11 PM Complications: None [email or web address] 02:14 PM Report given to Ritika HENSLEY Pt taken to Room #37. 14:14 [email or web address] 02:15 PM Patient out of room: 14:14 [email or web address] Complications Complication None None Hemodynamics Pressures Site Systolic/A Wave Diastolic/V Wave Mean AO 123 94 109 AO AO 130 97 115 LV 133 23 29 LV LV 148 -3 29 LV 135 42 10 Post Procedure Information Blood Pressure: 127/75 mmHg Rhythm: NSR Post procedural instructions were given Closure Device Time Device Success/Fail 01/11/2019 2:13:00 PM Manual Compression Successful Site Checks Time Location Status Staff Sheath In? Note 02:10 PM Rt Wrist No bleeding/ No Hematoma Arabella Huerta RT (R) Pulses Time Site Pre-Procedure Post-Procedure Note Bilateral DP & PT 2+ 2:10:00 PM Rt Radial 1+ Updated by Ceci Breen RT(R) on 01/11/2019 2:19:38 PM electronically signed on 01/11/2019 2:20:07 PM with status of Final
--- NOTE | 2019-01-11 15:08 | Discharge Summary ---
- NOTES TO OUTPATIENT PROVIDER Notes to Outpatient Provider: f/u with PCP in one week. f/u with Cardiology in 1-2 weeks. Medication changes: Increased Imdur to 120mg Daily. Increased Lipitor to 80mg at HS. Started on Ranexa 500mg PO BID.. Changed Insnulin to different regimen : Lispro 6 U TID with each meal and Levemir 20 U BID. Date of Encounter: 01/11/19 Time of Encounter: 14:54 - Discharge Diagnosis (1) Chest pain Priority: Primary Status: Acute Qualifiers: Chest pain type: unspecified Qualified Code(s): R07.9 - Chest pain, unspecified (2) Hyperglycemia Priority: Primary Status: Acute (3) CAD (coronary artery disease) Priority: Secondary Status: Chronic Qualifiers: Coronary Disease-Associated Artery/Lesion type: [place] artery [place] vs. 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 Potter is a 58 year old male with past medical history of type 2 diabetes, hyperlipidemia, history of CAD status post stent 10 years ago, and hypertension Presented to the ED for acute chest pain. Patient chest pain occurred suddenly substernal stabbing intermittent every 30 minutes lasting for 20 minutes radiating to the right shoulder. His CP exacerbated with position and exertion. 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 His serial troponin came back as negative. Since he is high risk for ACS he did go for nuclear stress test which came back as negative. However since patient is still complaining about intermittent chest pain he was evaluated by hay farmer who did LHC today. His LHC showed diffuse distal disease for which card recommended for medical management. So we increased his Imdur to 120mg, Lipitor to 80mg and added Ranexa 500mg PO BID. He did have uncontrolled blood sugars with HbA1C @ 11.8.. So changed his home insulin regimen to, Lispro 6 U TID + Levemir 20 U BID.. His Sugars little better now. Recommend to f/u with PCP and Cardiology as an out pt. - Time Spent with Patient Total time spent providing and/or coordinating discharge services: - Discharge Medications Prescriptions: New Insulin LISPRO [HumaLOG] 6 units SQ TIDAC #2 vial Insulin DETEMIR [Levemir] 20 unit SQ BID #1 [id number] Ranolazine [Ranexa] 500 mg PO BID #60 tab.er.12h Continued Mirtazapine [Remeron] 30 mg PO HS Diltiazem CD (24hr) [Cardizem CD] 240 mg PO DAILY Metoprolol [Lopressor] 25 mg PO BID #60 tablet Aspirin Enteric Coated [Aspirin EC] 325 mg PO DAILY Tramadol HCl [Ultram] 50 mg PO TID PRN PRN Reason: Pain Changed Isosorbide MONOnitrate (24 HR) [Imdur] 120 mg PO DAILY #60 tab.er.24h Discontinued Insulin Regular, Human [Novolin R] 40 units SQ BID Insulin NPH Human Isophane [Novolin N] 40 - 50 units SQ BID Atorvastatin [Lipitor] 40 mg PO HS #30 tablet Home Medications: Mirtazapine [Remeron] 30 mg PO HS 03/23/15 [History] Diltiazem CD (24hr) [Cardizem CD] 240 mg PO DAILY 05/06/15 [History] Metoprolol [Lopressor] 25 mg PO BID #60 tablet 05/08/15 [Rx] Aspirin Enteric Coated [Aspirin EC] 325 mg PO DAILY 01/09/19 [History] Tramadol HCl [Ultram] 50 mg PO TID PRN 01/09/19 [History] Insulin DETEMIR [Levemir] 20 unit SQ BID #1 [id number] 01/11/19 [Rx] Insulin LISPRO [HumaLOG] 6 units SQ TIDAC #2 vial 01/11/19 [Rx] Isosorbide MONOnitrate (24 HR) [Imdur] 120 mg PO DAILY #60 tab.er.24h 01/11/19 [Rx] Ranolazine [Ranexa] 500 mg PO BID #60 tab.er.12h 01/11/19 [Rx] Allergies/Adverse Reactions: Allergy/AdvReac Type Severity Reaction Status Date / Time No Known Allergies Allergy Verified 04/05/17 14:19 Date of admission: 01/08/19 20:56 Primary care physician: Oscar Larson MD Consults: 01/09/19 14:20 Consult to Nutrition [CONS] Routine Comment: Consulting Provider: NUTRITION Reason for Dietary Consult: Diet Education 01/10/19 12:42 Consult to Cardiology [CONS] Routine Comment: Consulting Provider: Cardiology Lawrence Reason for Consult: recurrent chest pain.. Negative stress test.. Pt and Family wanted to talk to cardiology Time Notified: 12:42 Call Completed: Yes - Constitutional Vitals: Temp Pulse Resp BP Pulse Ox 97.8 F 84 16 129/75 95 01/11/19 10:57 01/11/19 10:57 01/11/19 10:57 01/11/19 10:57 01/11/19 10:57 General appearance: Present: cooperative, A&O X 3, no acute distress, answers questions appropriately Exam: Gen: Alert, awake, Oriented to time,place and person Chest: Diminished breath sounds B/L, No wheezing, No crackles, No rales Heart: S1S2+ RRR No murmurs Abd: Soft, NT, BS +, No organomegaly Ext: No edema, pulses are palpable, No calf tenderness Neuro : No acute focal neuro deficits noticed Skin: No rash. - Patient Status Disposition: Home, Self-Care Condition: Good Overall status at discharge: patient is back to baseline - Discharge Instructions Follow Up With: Oscar Larson MD [Primary Care Provider] - 01/16/19 10:40 am (you will see at this visit.) Colby Patel MD [Partnered Physician] - - Diet and Activity Activity: increase activity as tolerated Diet: low salt diet
[2019-01-11 18:07] VITALS: BP 176/74
[2019-01-12] MEDS ORDERED: Isosorbide MONOnitrate (24 HR) 60 MG TAB.ER.24H PO SCH (09:00)
== END 2019-01-11 18:05 | disposition home or self-care (01) ==
LOC: EMEROOARM 17:32 → 3BNU 17:32 → SUATTDRO 20:56 → 3BNU 21:35
PROVIDERS: ADMIT Family Medicine; ATTEND Family Medicine

== ENCOUNTER 2019-08-21 18:45 | Observation (INO) ==
[2019-08-21] MEDS ORDERED: Isovue-370 500 ML BOTTLE IVP ONE ×2 (19:19→21:08)
[2019-08-21] MEDS ORDERED: *HR* Heparin 5,000 UNIT/ML VIAL IVP ONE (19:20)
[2019-08-21] MEDS ORDERED: *HR* Heparin 5,000 UNIT/ML VIAL IVP PRN ×2 (19:20)
[2019-08-21] MEDS ORDERED: *HR* Metoprolol 5 MG/5 ML VIAL IVP ONE (19:22)
[2019-08-21] MEDS ORDERED: Heparin 25,000 UNIT/250 ML D5W 25,000 UNIT/250 ML IV.SOLN IVC SCH (19:30)
[2019-08-21 19:44] LABS: Basophils % 0.4 %; Eosinophils # 0.1 K/mcL (0.0-0.6); Eosinophils % 0.7 %; Hematocrit 42.5 % (37.5-50.1); Hemoglobin 13.9 g/dL (12.9-16.9); Immature Granulocytes % 0.6 % (0-4); Lymphocytes # 1.9 K/mcL (0.6-4.6); Lymphocytes % 17.7 %; Mean Corpuscular HGB Conc 32.7 g/dL (31.6-35.5); Mean Corpuscular Hemoglobin 28.6 pg (28.0-33.3); Mean Corpuscular Volume 87.4 fL (83.0-100.0); Mean Platelet Volume 9.5 fL (9.4-12.4); Monocytes % 8.9 %; Neutrophils # 7.7 K/mcL (1.6-8.9); Platelet Count 202 K/mcL (140-400); Red Blood Count 4.86 M/mcL (4.19-5.50); Red Cell Distribution Width 13.2 % (11.5-14.5); Segmented Neutrophils % 71.7 %; White Blood Count 10.7 K/mcL (4.3-11.1)
[2019-08-21 19:45] LABS: Heparin anti-factor XA UFH < 0.04 IU/mL (0.30-0.70); INR 1.1; Prothrombin Time 12.3 Seconds (9.4-12.1)
[2019-08-21 19:47] LABS: Activated Partial Thrombo Time 30.8 Seconds (26.0-36.0)
[2019-08-21 19:52] LABS: Alanine Aminotransferase 14 Units/L (7-52); Albumin 3.9 g/dL (3.5-5.7); Albumin/Globulin Ratio 1.3 (1.1-2.2); Alkaline Phosphatase 121 Units/L (34-104); Aspartate Amino Transferase 13 Units/L (13-39); BUN/Creatinine Ratio 14 (6-26); Bilirubin,Direct 0.1 mg/dL (0.0-0.2); Bilirubin,Indirect 0.3 mg/dL (0.0-1.0); Bilirubin,Total 0.4 mg/dL (0.3-1.0); Blood Urea Nitrogen 12 mg/dL (6-20); Carbon Dioxide 28 mEq/L (23-29); Chloride 99 mEq/L (98-107); Globulin 3.1 g/dL (2.4-3.5); Glucose 301 mg/dL (70-105); Magnesium 1.9 mg/dL (1.6-2.6); Osmolality,Calculated 287 (280-300); Potassium 4.2 mEq/L (3.5-5.1); Sodium 133 mEq/L (136-145); Troponin I 0.03 ng/mL (< 0.04); eGFR For African Americans > 60 (> 60); eGFR For Non-African Americans > 60 (> 60)
[2019-08-21] MEDS: Nitroglycerin 0.4 MG TAB.SUBL SL SCH ×3 (20:04→20:17)
[2019-08-21] MEDS ORDERED: *HR* LORazepam 2 MG/ML VIAL IVP ONE (20:21)
[2019-08-21] MEDS ORDERED: Naloxone 0.4 MG/ML INJ IVP PRN (21:09)
[2019-08-21] MEDS ORDERED: D5% in Water 1,000 ML IVC PRN (21:11)
[2019-08-21] MEDS ORDERED: Dextrose Gel 15 GM/37.5 ML TUBE PO PRN ×2 (21:11)
[2019-08-21] MEDS ORDERED: *HR* Dextrose 50 % in Water (Syg) 50 ML SYRINGE IVP PRN (21:11)
[2019-08-22] MEDS ORDERED: *HR* OxyCODONE/APAP 5/325 TABLET PO ONE ×2 (00:31→19:18)
[2019-08-22 00:45] LABS: Basophils # 0.1 K/mcL (0.0-0.2); Basophils % 0.4 %; Eosinophils # 0.1 K/mcL (0.0-0.6); Eosinophils % 0.8 %; Hemoglobin 13.4 g/dL (12.9-16.9); Immature Granulocytes % 0.4 % (0-4); Lymphocytes # 2.4 K/mcL (0.6-4.6); Lymphocytes % 21.4 %; Mean Corpuscular HGB Conc 33.5 g/dL (31.6-35.5); Mean Corpuscular Hemoglobin 28.9 pg (28.0-33.3); Mean Corpuscular Volume 86.4 fL (83.0-100.0); Mean Platelet Volume 9.5 fL (9.4-12.4); Monocytes # 1.3 K/mcL (0.0-1.3); Monocytes % 11.1 %; Neutrophils # 7.5 K/mcL (1.6-8.9); Platelet Count 202 K/mcL (140-400); Red Blood Count 4.63 M/mcL (4.19-5.50); Red Cell Distribution Width 13.2 % (11.5-14.5); Segmented Neutrophils % 65.9 %; White Blood Count 11.4 K/mcL (4.3-11.1)
[2019-08-22 00:47] LABS: BUN/Creatinine Ratio 18 (6-26); Blood Urea Nitrogen 12 mg/dL (6-20); Calcium 8.8 mg/dL (8.6-10.3); Carbon Dioxide 25 mEq/L (23-29); Chloride 100 mEq/L (98-107); Glucose 228 mg/dL (70-105); Osmolality,Calculated 285 (280-300); Potassium 3.8 mEq/L (3.5-5.1); Sodium 134 mEq/L (136-145); eGFR For African Americans > 60 (> 60); eGFR For Non-African Americans > 60 (> 60)
[2019-08-22] MEDS: Insulin LISPRO 300 UNITS/3 ML VIAL SQ SCH ×6 (08:12→16:51)
[2019-08-22] MEDS ORDERED: lisinopriL 5 MG TABLET PO SCH (09:00)
[2019-08-22] MEDS ORDERED: Isosorbide MONOnitrate (24 HR) 60 MG TAB.ER.24H PO SCH ×2 (09:00→09:15)
[2019-08-22] MEDS ORDERED: Ranolazine 500 MG TAB.ER.12H PO SCH (09:00)
[2019-08-22] MEDS ORDERED: lisinopriL 5 MG TABLET PO ONE (09:30)
[2019-08-22] MEDS: Aspirin Enteric Coated 325 MG Tablet PO SCH (09:44)
[2019-08-22] MEDS: DilTIAZem CD (24hr) 240 MG CAP.ER.24H PO SCH (09:44)
[2019-08-22] MEDS: traZODone 50 MG TABLET PO SCH (09:46)
[2019-08-22] MEDS: Ranolazine 500 MG TAB.ER.12H PO SCH ×2 (09:53→20:06)
[2019-08-22] MEDS: Insulin DETEMIR 100 UNIT/ML X5UNITS SQ SCH ×2 (09:59→20:09)
[2019-08-23 00:45] LABS: Hematocrit 38.9 % (37.5-50.1); Mean Corpuscular HGB Conc 33.4 g/dL (31.6-35.5); Mean Corpuscular Hemoglobin 29.2 pg (28.0-33.3); Mean Corpuscular Volume 87.4 fL (83.0-100.0); Mean Platelet Volume 9.3 fL (9.4-12.4); Platelet Count 197 K/mcL (140-400); Red Blood Count 4.45 M/mcL (4.19-5.50); Red Cell Distribution Width 13.2 % (11.5-14.5); White Blood Count 11.2 K/mcL (4.3-11.1)
[2019-08-23 01:07] LABS: BUN/Creatinine Ratio 17 (6-26); Blood Urea Nitrogen 19 mg/dL (6-20); Calcium 8.7 mg/dL (8.6-10.3); Carbon Dioxide 26 mEq/L (23-29); Chloride 103 mEq/L (98-107); Glucose 190 mg/dL (70-105); Osmolality,Calculated 287 (280-300); Potassium 3.9 mEq/L (3.5-5.1); Sodium 135 mEq/L (136-145); eGFR For African Americans > 60 (> 60); eGFR For Non-African Americans > 60 (> 60)
[2019-08-23 06:47] VITALS: BP 136/79
[2019-08-23] MEDS: Aspirin Enteric Coated 325 MG Tablet PO SCH (07:29)
[2019-08-23] MEDS: traZODone 50 MG TABLET PO SCH (07:29)
[2019-08-23] MEDS: DilTIAZem CD (24hr) 240 MG CAP.ER.24H PO SCH (07:31)
[2019-08-23] MEDS: Ranolazine 500 MG TAB.ER.12H PO SCH (07:31)
[2019-08-23] MEDS: Insulin LISPRO 300 UNITS/3 ML VIAL SQ SCH ×2 (07:33→07:39)
[2019-08-23] MEDS: Insulin DETEMIR 100 UNIT/ML X5UNITS SQ SCH (07:41)
[2019-08-23] MEDS ORDERED: lisinopriL 5 MG TABLET PO SCH (09:00)
== END 2019-08-23 10:12 | disposition home or self-care (01) ==
LOC: EMEROOARM 18:45 → 3BNU 18:45
PROVIDERS: ADMIT Family Medicine; ATTEND Family Medicine

== ENCOUNTER 2019-08-24 12:14 | Observation (INO) ==
[2019-08-24 12:55] LABS: Basophils % 0.3 %; Eosinophils # 0.1 K/mcL (0.0-0.6); Eosinophils % 0.9 %; Hematocrit 41.1 % (37.5-50.1); Hemoglobin 13.5 g/dL (12.9-16.9); Immature Granulocytes % 0.6 % (0-4); Lymphocytes # 1.5 K/mcL (0.6-4.6); Lymphocytes % 10.9 %; Mean Corpuscular HGB Conc 32.8 g/dL (31.6-35.5); Mean Corpuscular Hemoglobin 28.8 pg (28.0-33.3); Mean Corpuscular Volume 87.8 fL (83.0-100.0); Monocytes # 1.2 K/mcL (0.0-1.3); Monocytes % 9.1 %; Neutrophils # 10.6 K/mcL (1.6-8.9); Platelet Count 236 K/mcL (140-400); Red Blood Count 4.68 M/mcL (4.19-5.50); Red Cell Distribution Width 13.2 % (11.5-14.5); Segmented Neutrophils % 78.2 %; White Blood Count 13.5 K/mcL (4.3-11.1)
[2019-08-24] MEDS ORDERED: Gadolinium Contrast Agent (WT Based) IV PRN ×2 (12:56→13:23)
[2019-08-24] MEDS ORDERED: Piperacillin/Tazobactam 3.375 GM in 0.9 % Sodium Chloride Mini Bag 100 ML IVPB ONE (12:56)
[2019-08-24 12:57] LABS: INR 1.3; Prothrombin Time 14.7 Seconds (9.4-12.1)
[2019-08-24] MEDS ORDERED: Piperacillin/Tazobactam 3.375 GM in Water for inj. (sterile) 20 ML IVP ONE (13:03)
[2019-08-24 13:08] LABS: BUN/Creatinine Ratio 25 (6-26); Blood Urea Nitrogen 32 mg/dL (6-20); Calcium 8.7 mg/dL (8.6-10.3); Carbon Dioxide 25 mEq/L (23-29); Chloride 95 mEq/L (98-107); Glucose 299 mg/dL (70-105); Osmolality,Calculated 286 (280-300); Potassium 4.5 mEq/L (3.5-5.1); Sodium 129 mEq/L (136-145); eGFR For African Americans > 60 (> 60); eGFR For Non-African Americans 59 (> 60)
[2019-08-24] MEDS ORDERED: Ondansetron 4 MG/2 ML VIAL IVP PRN (13:31)
[2019-08-24] MEDS ORDERED: Acetaminophen 325 MG TABLET PO PRN (13:31)
[2019-08-24] MEDS ORDERED: Naloxone 0.4 MG/ML INJ IVP PRN (13:31)
[2019-08-24] MEDS ORDERED: 0.9 % Sodium Chloride 1,000 ML IVC SCH (13:45)
[2019-08-24] MEDS: *HR* HYDROcodone/Acet 5/325 mg TABLET PO PRN ×2 (14:05→22:51)
[2019-08-24] MEDS ORDERED: Nitroglycerin 0.4 MG TAB.SUBL SL PRN (14:09)
[2019-08-24 14:37] LABS: C-Reactive Protein 156 mg/L (Less than 10)
[2019-08-24] MEDS: Piperacillin/Tazobactam 3.375 GM in 0.9 % Sodium Chloride Mini Bag 100 ML IVPB SCH ×2 (15:14→23:03)
[2019-08-24] MEDS: *HR* Heparin 5,000 UNIT/ML VIAL SQ SCH ×2 (15:14→21:38)
[2019-08-24] MEDS ORDERED: *HR* Dextrose 50 % in Water (Syg) 50 ML SYRINGE IVP PRN (15:35)
[2019-08-24] MEDS ORDERED: D5% in Water 1,000 ML IVC PRN (15:35)
[2019-08-24] MEDS ORDERED: Dextrose Gel 15 GM/37.5 ML TUBE PO PRN ×2 (15:35)
[2019-08-24] MEDS: Insulin LISPRO 300 UNITS/3 ML VIAL SQ SCH ×2 (17:51→21:38)
[2019-08-24] MEDS ORDERED: *HR* OxyCODONE/APAP 5/325 TABLET PO ONE (18:21)
[2019-08-24] MEDS: Famotidine 20 MG TABLET PO SCH (18:29)
[2019-08-24] MEDS: Ranolazine 500 MG TAB.ER.12H PO SCH (21:38)
[2019-08-24] MEDS: Insulin DETEMIR 100 UNIT/ML X5UNITS SQ SCH (21:39)
[2019-08-25] MEDS: *HR* Heparin 5,000 UNIT/ML VIAL SQ SCH ×3 (06:05→21:26)
[2019-08-25 06:28] LABS: Hematocrit 32.8 % (37.5-50.1); Mean Corpuscular HGB Conc 32.6 g/dL (31.6-35.5); Mean Corpuscular Hemoglobin 28.8 pg (28.0-33.3); Mean Corpuscular Volume 88.2 fL (83.0-100.0); Mean Platelet Volume 9.5 fL (9.4-12.4); Platelet Count 179 K/mcL (140-400); Red Blood Count 3.72 M/mcL (4.19-5.50); Red Cell Distribution Width 13.3 % (11.5-14.5); White Blood Count 11.2 K/mcL (4.3-11.1)
[2019-08-25 06:31] LABS: Hemoglobin 10.7 g/dL (12.9-16.9)
[2019-08-25 06:48] LABS: BUN/Creatinine Ratio 26 (6-26); Blood Urea Nitrogen 27 mg/dL (6-20); Calcium 8.2 mg/dL (8.6-10.3); Carbon Dioxide 27 mEq/L (23-29); Chloride 102 mEq/L (98-107); Glucose 160 mg/dL (70-105); Magnesium 2.1 mg/dL (1.6-2.6); Osmolality,Calculated 287 (280-300); Potassium 4.2 mEq/L (3.5-5.1); Sodium 134 mEq/L (136-145); eGFR For African Americans > 60 (> 60); eGFR For Non-African Americans > 60 (> 60)
[2019-08-25] MEDS: Insulin LISPRO 300 UNITS/3 ML VIAL SQ SCH ×4 (07:30→21:27)
[2019-08-25] MEDS: Isosorbide MONOnitrate (24 HR) 60 MG TAB.ER.24H PO SCH (08:00)
[2019-08-25] MEDS: Famotidine 20 MG TABLET PO SCH ×2 (08:00→20:23)
[2019-08-25] MEDS: Aspirin Enteric Coated 81 MG Tablet PO SCH (08:00)
[2019-08-25] MEDS: Piperacillin/Tazobactam 3.375 GM in 0.9 % Sodium Chloride Mini Bag 100 ML IVPB SCH ×2 (08:00→15:48)
[2019-08-25] MEDS: Ranolazine 500 MG TAB.ER.12H PO SCH ×2 (08:00→20:23)
[2019-08-25] MEDS: Insulin DETEMIR 100 UNIT/ML X5UNITS SQ SCH ×2 (11:53→21:25)
[2019-08-25] MEDS: *HR* HYDROcodone/Acet 5/325 mg TABLET PO PRN (21:26)
[2019-08-26] MEDS: Melatonin 3 MG TABLET PO PRN ×2 (00:47→22:01)
[2019-08-26] MEDS: Piperacillin/Tazobactam 3.375 GM in 0.9 % Sodium Chloride Mini Bag 100 ML IVPB SCH ×2 (00:49→07:56)
[2019-08-26] MEDS: *HR* HYDROcodone/Acet 5/325 mg TABLET PO PRN ×3 (03:19→21:49)
[2019-08-26] MEDS: *HR* Heparin 5,000 UNIT/ML VIAL SQ SCH ×3 (06:00→21:51)
[2019-08-26 07:50] LABS: Hematocrit 35.3 % (37.5-50.1); Hemoglobin 11.6 g/dL (12.9-16.9); Mean Corpuscular HGB Conc 32.9 g/dL (31.6-35.5); Mean Corpuscular Hemoglobin 28.7 pg (28.0-33.3); Mean Corpuscular Volume 87.4 fL (83.0-100.0); Mean Platelet Volume 9.3 fL (9.4-12.4); Platelet Count 203 K/mcL (140-400); Red Blood Count 4.04 M/mcL (4.19-5.50); Red Cell Distribution Width 13.2 % (11.5-14.5); White Blood Count 8.7 K/mcL (4.3-11.1)
[2019-08-26 07:52] LABS: INR 1.3; Prothrombin Time 14.4 Seconds (9.4-12.1)
[2019-08-26] MEDS: Insulin LISPRO 300 UNITS/3 ML VIAL SQ SCH ×4 (07:55→22:06)
[2019-08-26] MEDS: Insulin DETEMIR 100 UNIT/ML X5UNITS SQ SCH ×2 (07:59→21:50)
[2019-08-26] MEDS: Aspirin Enteric Coated 81 MG Tablet PO SCH (08:00)
[2019-08-26] MEDS: Isosorbide MONOnitrate (24 HR) 60 MG TAB.ER.24H PO SCH (08:00)
[2019-08-26] MEDS: Famotidine 20 MG TABLET PO SCH ×2 (08:01→21:48)
[2019-08-26] MEDS: Ranolazine 500 MG TAB.ER.12H PO SCH ×2 (08:01→21:49)
[2019-08-26 08:13] LABS: BUN/Creatinine Ratio 20 (6-26); Blood Urea Nitrogen 17 mg/dL (6-20); Calcium 8.5 mg/dL (8.6-10.3); Carbon Dioxide 26 mEq/L (23-29); Chloride 106 mEq/L (98-107); Glucose 128 mg/dL (70-105); Osmolality,Calculated 287 (280-300); Potassium 4.2 mEq/L (3.5-5.1); Sodium 137 mEq/L (136-145); eGFR For African Americans > 60 (> 60); eGFR For Non-African Americans > 60 (> 60)
[2019-08-26] MEDS ORDERED: cephALEXin 500 MG CAPSULE PO SCH (13:00)
[2019-08-26 13:59] LABS: C-Reactive Protein 135 mg/L (Less than 10)
[2019-08-26] MEDS: ceFAZolin 2,000 MG in 0.9 % Sodium Chloride 100 ML IVPB SCH (16:08)
[2019-08-27] MEDS: ceFAZolin 2,000 MG in 0.9 % Sodium Chloride 100 ML IVPB SCH ×2 (00:02→07:41)
[2019-08-27] MEDS: *HR* HYDROcodone/Acet 5/325 mg TABLET PO PRN (03:50)
[2019-08-27] MEDS: *HR* Heparin 5,000 UNIT/ML VIAL SQ SCH (06:47)
[2019-08-27 07:31] VITALS: BP 165/89
[2019-08-27] MEDS: Insulin DETEMIR 100 UNIT/ML X5UNITS SQ SCH (07:42)
[2019-08-27] MEDS: Aspirin Enteric Coated 81 MG Tablet PO SCH (07:42)
[2019-08-27] MEDS: Isosorbide MONOnitrate (24 HR) 60 MG TAB.ER.24H PO SCH (07:42)
[2019-08-27] MEDS: Ranolazine 500 MG TAB.ER.12H PO SCH (07:43)
[2019-08-27] MEDS: Famotidine 20 MG TABLET PO SCH (07:43)
[2019-08-27] MEDS: Insulin LISPRO 300 UNITS/3 ML VIAL SQ SCH (07:49)
== END 2019-08-27 11:12 | disposition home or self-care (01) ==
LOC: 3ANU 12:14 → EMEROOARM 12:14 → SUATTDRO 13:33 → 3ANU 14:36
PROVIDERS: ADMIT Internal Medicine; ATTEND Internal Medicine

== ENCOUNTER 2019-09-09 17:54 | Inpatient (IN) ==
[2019-09-09] MEDS ORDERED: Nitroglycerin 0.4 MG TAB.SUBL SL PRN (18:36)
[2019-09-09] MEDS ORDERED: Piperacillin/Tazobactam 3.375 GM in Water for inj. (sterile) 20 ML IVP ONE (19:25)
[2019-09-09 19:48] LABS: Basophils # 0.1 K/mcL (0.0-0.2); Basophils % 0.9 %; Eosinophils # 0.1 K/mcL (0.0-0.6); Eosinophils % 1.8 %; Hematocrit 38.5 % (37.5-50.1); Hemoglobin 12.8 g/dL (12.9-16.9); Immature Granulocytes % 0.5 % (0-4); Lymphocytes # 1.9 K/mcL (0.6-4.6); Lymphocytes % 28.3 %; Mean Corpuscular HGB Conc 33.2 g/dL (31.6-35.5); Mean Corpuscular Hemoglobin 29.2 pg (28.0-33.3); Mean Corpuscular Volume 87.9 fL (83.0-100.0); Mean Platelet Volume 9.2 fL (9.4-12.4); Monocytes # 0.5 K/mcL (0.0-1.3); Platelet Count 223 K/mcL (140-400); Red Blood Count 4.38 M/mcL (4.19-5.50); Red Cell Distribution Width 13.2 % (11.5-14.5); Segmented Neutrophils % 60.5 %; White Blood Count 6.7 K/mcL (4.3-11.1)
[2019-09-09 20:03] LABS: Alanine Aminotransferase 24 Units/L (7-52); Albumin 3.5 g/dL (3.5-5.7); Alkaline Phosphatase 111 Units/L (34-104); Aspartate Amino Transferase 16 Units/L (13-39); BUN/Creatinine Ratio 17 (6-26); Bilirubin,Total 0.3 mg/dL (0.3-1.0); Blood Urea Nitrogen 15 mg/dL (6-20); C-Reactive Protein < 5 mg/L (Less than 10); Calcium 8.6 mg/dL (8.6-10.3); Carbon Dioxide 27 mEq/L (23-29); Chloride 104 mEq/L (98-107); Globulin 3.5 g/dL (2.4-3.5); Glucose 342 mg/dL (70-105); Osmolality,Calculated 300 (280-300); Potassium 4.5 mEq/L (3.5-5.1); Sodium 138 mEq/L (136-145); Troponin I < 0.03 ng/mL (< 0.04); eGFR For African Americans > 60 (> 60); eGFR For Non-African Americans > 60 (> 60)
[2019-09-10] MEDS ORDERED: Naloxone 0.4 MG/ML INJ IVP PRN (02:07)
[2019-09-10] MEDS ORDERED: Dextrose Gel 15 GM/37.5 ML TUBE PO PRN ×2 (02:27)
[2019-09-10] MEDS ORDERED: D5% in Water 1,000 ML IVC PRN (02:27)
[2019-09-10] MEDS ORDERED: *HR* Dextrose 50 % in Water (Syg) 50 ML SYRINGE IVP PRN (02:27)
[2019-09-10 04:50] LABS: Hematocrit 36.3 % (37.5-50.1); Hemoglobin 11.9 g/dL (12.9-16.9); Mean Corpuscular HGB Conc 32.8 g/dL (31.6-35.5); Mean Corpuscular Hemoglobin 28.8 pg (28.0-33.3); Mean Corpuscular Volume 87.9 fL (83.0-100.0); Mean Platelet Volume 9.1 fL (9.4-12.4); Platelet Count 186 K/mcL (140-400); Red Blood Count 4.13 M/mcL (4.19-5.50); Red Cell Distribution Width 13.3 % (11.5-14.5); White Blood Count 7.4 K/mcL (4.3-11.1)
[2019-09-10 04:57] LABS: INR 1.2; Prothrombin Time 13.1 Seconds (9.4-12.1)
[2019-09-10 05:00] LABS: Activated Partial Thrombo Time 32.3 Seconds (26.0-36.0)
[2019-09-10 05:09] LABS: BUN/Creatinine Ratio 20 (6-26); Blood Urea Nitrogen 15 mg/dL (6-20); Calcium 8.3 mg/dL (8.6-10.3); Carbon Dioxide 26 mEq/L (23-29); Chloride 106 mEq/L (98-107); Glucose 166 mg/dL (70-105); Magnesium 1.8 mg/dL (1.6-2.6); Osmolality,Calculated 291 (280-300); Phosphorous 3.7 mg/dL (2.7-4.5); Potassium 3.9 mEq/L (3.5-5.1); Sodium 138 mEq/L (136-145); eGFR For African Americans > 60 (> 60); eGFR For Non-African Americans > 60 (> 60)
[2019-09-10] MEDS ORDERED: Insulin LISPRO 300 UNITS/3 ML VIAL SQ SCH (06:00)
[2019-09-10] MEDS: Piperacillin/Tazobactam 3.375 GM in 0.9 % Sodium Chloride Mini Bag 100 ML IVPB SCH ×3 (08:26→23:20)
[2019-09-10] MEDS ORDERED: Nitroglycerin 0.4 MG TAB.SUBL SL PRN (08:47)
[2019-09-10] MEDS ORDERED: lisinopriL 5 MG TABLET PO SCH (09:00)
[2019-09-10] MEDS: Isosorbide MONOnitrate (24 HR) 60 MG TAB.ER.24H PO SCH (10:46)
[2019-09-10] MEDS: Ranolazine 500 MG TAB.ER.12H PO SCH ×2 (10:46→21:18)
[2019-09-10] MEDS: Aspirin Enteric Coated 81 MG Tablet PO SCH (10:46)
[2019-09-10] MEDS: lisinopriL 10 MG TABLET PO SCH (10:51)
[2019-09-10] MEDS ORDERED: Insulin DETEMIR 100 UNIT/ML X5UNITS SQ SCH (15:00)
[2019-09-10] MEDS ORDERED: Insulin DETEMIR 100 UNIT/ML X5UNITS SQ ONE (15:24)
[2019-09-10] MEDS: Insulin LISPRO 300 UNITS/3 ML VIAL SQ SCH (17:26)
[2019-09-11] MEDS ORDERED: Melatonin 3 MG TABLET PO ONE (00:28)
[2019-09-11] MEDS: Insulin LISPRO 300 UNITS/3 ML VIAL SQ SCH ×3 (07:43→18:06)
[2019-09-11 07:52] LABS: Basophils # 0.1 K/mcL (0.0-0.2); Basophils % 0.6 %; Eosinophils # 0.2 K/mcL (0.0-0.6); Eosinophils % 2.5 %; Hematocrit 37.7 % (37.5-50.1); Hemoglobin 12.2 g/dL (12.9-16.9); Immature Granulocytes % 0.2 % (0-4); Lymphocytes # 2.2 K/mcL (0.6-4.6); Lymphocytes % 26.4 %; Mean Corpuscular HGB Conc 32.4 g/dL (31.6-35.5); Mean Corpuscular Hemoglobin 28.2 pg (28.0-33.3); Mean Corpuscular Volume 87.1 fL (83.0-100.0); Mean Platelet Volume 9.4 fL (9.4-12.4); Monocytes # 0.8 K/mcL (0.0-1.3); Monocytes % 9.8 %; Neutrophils # 4.9 K/mcL (1.6-8.9); Platelet Count 205 K/mcL (140-400); Red Blood Count 4.33 M/mcL (4.19-5.50); Red Cell Distribution Width 13.4 % (11.5-14.5); Segmented Neutrophils % 60.5 %; White Blood Count 8.1 K/mcL (4.3-11.1)
[2019-09-11] MEDS: Ranolazine 500 MG TAB.ER.12H PO SCH ×2 (07:59→20:07)
[2019-09-11] MEDS: Piperacillin/Tazobactam 3.375 GM in 0.9 % Sodium Chloride Mini Bag 100 ML IVPB SCH ×2 (08:00→15:54)
[2019-09-11] MEDS: lisinopriL 10 MG TABLET PO SCH ×2 (08:03→11:22)
[2019-09-11] MEDS: Isosorbide MONOnitrate (24 HR) 60 MG TAB.ER.24H PO SCH ×2 (08:03→11:22)
[2019-09-11] MEDS: Aspirin Enteric Coated 81 MG Tablet PO SCH ×2 (08:03→11:22)
[2019-09-11] MEDS: Insulin DETEMIR 100 UNIT/ML X5UNITS SQ SCH ×2 (08:03→20:09)
[2019-09-11 08:21] LABS: BUN/Creatinine Ratio 17 (6-26); Blood Urea Nitrogen 14 mg/dL (6-20); Calcium 8.9 mg/dL (8.6-10.3); Carbon Dioxide 27 mEq/L (23-29); Chloride 103 mEq/L (98-107); Glucose 138 mg/dL (70-105); Osmolality,Calculated 287 (280-300); Potassium 3.8 mEq/L (3.5-5.1); Sodium 137 mEq/L (136-145); eGFR For African Americans > 60 (> 60); eGFR For Non-African Americans > 60 (> 60)
[2019-09-11] MEDS ORDERED: Acetaminophen 325 MG TABLET PO ONE (19:56)
[2019-09-11] MEDS ORDERED: Vancomycin 1,500 MG/265 ML IV.SOLN IVPB SCH (23:00)
[2019-09-12] MEDS: Piperacillin/Tazobactam 3.375 GM in 0.9 % Sodium Chloride Mini Bag 100 ML IVPB SCH ×2 (00:15→16:56)
[2019-09-12] MEDS ORDERED: Bupivacaine/Clonidine Syringe 20 ML, Syringe LUER-LOK 1 EACH TP ONE (07:45)
[2019-09-12] MEDS ORDERED: Insulin DETEMIR 100 UNIT/ML X5UNITS SQ SCH (09:00)
[2019-09-12] MEDS ORDERED: Nitroglycerin 0.4 MG TAB.SUBL SL PRN (09:06)
[2019-09-12] MEDS ORDERED: Dextrose Gel 15 GM/37.5 ML TUBE PO PRN ×2 (09:06)
[2019-09-12] MEDS ORDERED: Naloxone 0.4 MG/ML INJ IVP PRN (09:06)
[2019-09-12] MEDS ORDERED: *HR* Dextrose 50 % in Water (Syg) 50 ML SYRINGE IVP PRN (09:06)
[2019-09-12] MEDS ORDERED: D5% in Water 1,000 ML IVC PRN (09:06)
[2019-09-12] MEDS ORDERED: Piperacillin/Tazobactam 3.375 GM in 0.9 % Sodium Chloride Mini Bag 100 ML IVPB SCH ×2 (10:00→18:00)
[2019-09-12 10:37] LABS: Hematocrit 38.7 % (37.5-50.1); Hemoglobin 12.6 g/dL (12.9-16.9); Mean Corpuscular HGB Conc 32.6 g/dL (31.6-35.5); Mean Corpuscular Hemoglobin 28.3 pg (28.0-33.3); Mean Platelet Volume 9.1 fL (9.4-12.4); Platelet Count 182 K/mcL (140-400); Red Blood Count 4.45 M/mcL (4.19-5.50); Red Cell Distribution Width 13.6 % (11.5-14.5); White Blood Count 7.3 K/mcL (4.3-11.1)
[2019-09-12 10:56] LABS: BUN/Creatinine Ratio 16 (6-26); Blood Urea Nitrogen 15 mg/dL (6-20); Calcium 8.9 mg/dL (8.6-10.3); Carbon Dioxide 29 mEq/L (23-29); Chloride 103 mEq/L (98-107); Glucose 197 mg/dL (70-105); Osmolality,Calculated 284 (280-300); Sodium 134 mEq/L (136-145); eGFR For African Americans > 60 (> 60); eGFR For Non-African Americans > 60 (> 60)
[2019-09-12] MEDS ORDERED: *HR* HYDROmorphone (PF) 1 MG/ML SYRINGE IVP ONE (11:15)
[2019-09-12] MEDS: Insulin LISPRO 300 UNITS/3 ML VIAL SQ SCH ×2 (11:33→16:55)
[2019-09-12] MEDS: Vancomycin 1,500 MG/265 ML IV.SOLN IVPB SCH ×2 (11:34→23:33)
[2019-09-12] MEDS ORDERED: Aminoglycoside Consult 1 EACH MC ONE (14:41)
[2019-09-12] MEDS: traZODone 50 MG TABLET PO SCH (20:39)
[2019-09-12] MEDS: *HR* OxyCODONE Immed Rel 5 MG TABLET PO PRN (20:39)
[2019-09-12] MEDS: Ranolazine 500 MG TAB.ER.12H PO SCH (20:41)
[2019-09-12] MEDS: Insulin DETEMIR 100 UNIT/ML X5UNITS SQ SCH (20:41)
[2019-09-12] MEDS ORDERED: *HR* HYDROmorphone 2 MG TABLET PO ONE (23:24)
[2019-09-13] MEDS: *HR* OxyCODONE Immed Rel 5 MG TABLET PO PRN ×5 (01:23→22:48)
[2019-09-13] MEDS: Piperacillin/Tazobactam 3.375 GM in 0.9 % Sodium Chloride Mini Bag 100 ML IVPB SCH ×2 (01:24→10:09)
[2019-09-13 01:47] LABS: Hematocrit 38.1 % (37.5-50.1); Hemoglobin 12.5 g/dL (12.9-16.9); Mean Corpuscular HGB Conc 32.8 g/dL (31.6-35.5); Mean Corpuscular Hemoglobin 28.7 pg (28.0-33.3); Mean Corpuscular Volume 87.4 fL (83.0-100.0); Mean Platelet Volume 9.1 fL (9.4-12.4); Platelet Count 189 K/mcL (140-400); Red Blood Count 4.36 M/mcL (4.19-5.50); Red Cell Distribution Width 13.4 % (11.5-14.5); White Blood Count 8.4 K/mcL (4.3-11.1)
[2019-09-13 02:04] LABS: BUN/Creatinine Ratio 20 (6-26); Blood Urea Nitrogen 16 mg/dL (6-20); Calcium 8.5 mg/dL (8.6-10.3); Carbon Dioxide 25 mEq/L (23-29); Chloride 104 mEq/L (98-107); Glucose 157 mg/dL (70-105); Osmolality,Calculated 288 (280-300); Sodium 137 mEq/L (136-145); eGFR For African Americans > 60 (> 60); eGFR For Non-African Americans > 60 (> 60)
[2019-09-13] MEDS: Aspirin Enteric Coated 81 MG Tablet PO SCH (08:02)
[2019-09-13] MEDS: Isosorbide MONOnitrate (24 HR) 60 MG TAB.ER.24H PO SCH (08:02)
[2019-09-13] MEDS: Ranolazine 500 MG TAB.ER.12H PO SCH ×2 (08:03→22:19)
[2019-09-13] MEDS: Insulin LISPRO 300 UNITS/3 ML VIAL SQ SCH ×3 (08:04→17:15)
[2019-09-13] MEDS: Insulin DETEMIR 100 UNIT/ML X5UNITS SQ SCH ×2 (08:04→22:19)
[2019-09-13] MEDS ORDERED: Acetaminophen 325 MG TABLET PO PRN (09:17)
[2019-09-13] MEDS: lisinopriL 20 MG TABLET PO SCH (10:09)
[2019-09-13] MEDS: Vancomycin 1,500 MG/265 ML IV.SOLN IVPB SCH (12:38)
[2019-09-13] MEDS: levoFLOXacin 500 MG TABLET PO SCH (17:14)
[2019-09-13] MEDS: Doxycycline 100 MG CAPSULE PO SCH (22:19)
[2019-09-13] MEDS: traZODone 50 MG TABLET PO SCH (22:20)
[2019-09-14 02:00] LABS: Hematocrit 38.2 % (37.5-50.1); Hemoglobin 12.4 g/dL (12.9-16.9); Mean Corpuscular HGB Conc 32.5 g/dL (31.6-35.5); Mean Corpuscular Hemoglobin 28.3 pg (28.0-33.3); Mean Corpuscular Volume 87.2 fL (83.0-100.0); Mean Platelet Volume 9.3 fL (9.4-12.4); Platelet Count 179 K/mcL (140-400); Red Blood Count 4.38 M/mcL (4.19-5.50); Red Cell Distribution Width 13.6 % (11.5-14.5); White Blood Count 8.5 K/mcL (4.3-11.1)
[2019-09-14 02:17] LABS: BUN/Creatinine Ratio 20 (6-26); Blood Urea Nitrogen 19 mg/dL (6-20); Calcium 8.3 mg/dL (8.6-10.3); Carbon Dioxide 24 mEq/L (23-29); Chloride 105 mEq/L (98-107); Glucose 173 mg/dL (70-105); Osmolality,Calculated 284 (280-300); Sodium 134 mEq/L (136-145); eGFR For African Americans > 60 (> 60); eGFR For Non-African Americans > 60 (> 60)
[2019-09-14] MEDS: Doxycycline 100 MG CAPSULE PO SCH ×2 (07:23→20:25)
[2019-09-14] MEDS: lisinopriL 20 MG TABLET PO SCH (07:24)
[2019-09-14] MEDS: *HR* OxyCODONE Immed Rel 5 MG TABLET PO PRN ×3 (07:24→20:28)
[2019-09-14] MEDS: Aspirin Enteric Coated 81 MG Tablet PO SCH (07:24)
[2019-09-14] MEDS: Isosorbide MONOnitrate (24 HR) 60 MG TAB.ER.24H PO SCH (07:24)
[2019-09-14] MEDS: Ranolazine 500 MG TAB.ER.12H PO SCH ×2 (07:24→20:25)
[2019-09-14] MEDS: Insulin DETEMIR 100 UNIT/ML X5UNITS SQ SCH ×2 (08:47→20:25)
[2019-09-14] MEDS: Insulin LISPRO 300 UNITS/3 ML VIAL SQ SCH ×3 (08:49→16:30)
[2019-09-14] MEDS: levoFLOXacin 500 MG TABLET PO SCH (18:13)
[2019-09-14] MEDS: traZODone 50 MG TABLET PO SCH (20:25)
[2019-09-15] MEDS: *HR* OxyCODONE Immed Rel 5 MG TABLET PO PRN ×5 (01:46→21:13)
[2019-09-15] MEDS: Aspirin Enteric Coated 81 MG Tablet PO SCH (08:09)
[2019-09-15] MEDS: Isosorbide MONOnitrate (24 HR) 60 MG TAB.ER.24H PO SCH (08:09)
[2019-09-15] MEDS: Doxycycline 100 MG CAPSULE PO SCH ×2 (08:09→21:13)
[2019-09-15] MEDS: lisinopriL 20 MG TABLET PO SCH (08:09)
[2019-09-15] MEDS: Ranolazine 500 MG TAB.ER.12H PO SCH ×2 (08:10→21:13)
[2019-09-15] MEDS: Insulin DETEMIR 100 UNIT/ML X5UNITS SQ SCH ×2 (08:26→21:14)
[2019-09-15] MEDS: Insulin LISPRO 300 UNITS/3 ML VIAL SQ SCH ×3 (08:26→17:13)
[2019-09-15] MEDS: levoFLOXacin 500 MG TABLET PO SCH (17:14)
[2019-09-15] MEDS: traZODone 50 MG TABLET PO SCH (21:13)
[2019-09-16] MEDS: Doxycycline 100 MG CAPSULE PO SCH (07:57)
[2019-09-16] MEDS: *HR* OxyCODONE Immed Rel 5 MG TABLET PO PRN (07:57)
[2019-09-16] MEDS: Isosorbide MONOnitrate (24 HR) 60 MG TAB.ER.24H PO SCH (07:57)
[2019-09-16] MEDS: Aspirin Enteric Coated 81 MG Tablet PO SCH (07:57)
[2019-09-16] MEDS: Ranolazine 500 MG TAB.ER.12H PO SCH (07:57)
[2019-09-16] MEDS: Insulin LISPRO 300 UNITS/3 ML VIAL SQ SCH ×2 (07:58→11:38)
[2019-09-16] MEDS: Insulin DETEMIR 100 UNIT/ML X5UNITS SQ SCH (08:53)
[2019-09-16] MEDS: lisinopriL 20 MG TABLET PO SCH (08:53)
[2019-09-16 12:56] VITALS: BP 129/68
== END 2019-09-16 14:42 | disposition home health service (06) | DRG 264 ==
LOC: EMEROOARM 17:54 → 3NENU 17:54 → SUATTDRO 20:46 → 3NENU 22:08 → SUATTDRO 09-10 14:55
PROVIDERS: ADMIT Family Medicine; ATTEND Internal Medicine

== ENCOUNTER 2020-09-20 15:13 | Inpatient (IN) ==
[2020-09-20] MEDS ORDERED: Aspirin 81 MG TAB.CHEW PO ONE (16:23)
[2020-09-20 16:43] LABS: Basophils # 0.1 K/mcL (0.0-0.2); Basophils % 0.9 %; Eosinophils # 0.1 K/mcL (0.0-0.6); Eosinophils % 0.9 %; Hematocrit 44.1 % (37.5-50.1); Hemoglobin 14.4 g/dL (12.9-16.9); Immature Granulocytes % 0.4 % (0-4); Lymphocytes % 34.9 %; Mean Corpuscular HGB Conc 32.7 g/dL (31.6-35.5); Mean Corpuscular Hemoglobin 28.1 pg (28.0-33.3); Mean Platelet Volume 9.9 fL (9.4-12.4); Monocytes # 0.6 K/mcL (0.0-1.3); Platelet Count 158 K/mcL (140-400); Red Blood Count 5.13 M/mcL (4.19-5.50); Red Cell Distribution Width 13.4 % (11.5-14.5); Segmented Neutrophils % 52.9 %; White Blood Count 5.6 K/mcL (4.3-11.1)
[2020-09-20 16:48] LABS: Estimated Average Glucose 344 mg/dl; Hemoglobin A1C 13.6 %
[2020-09-20] MEDS: Nitroglycerin 0.4 MG TAB.SUBL SL SCH ×6 (16:55→22:09)
[2020-09-20 17:04] LABS: Acetaminophen < 10 mcg/mL (10-20); BUN/Creatinine Ratio 22 (6-26); Blood Urea Nitrogen 17 mg/dL (6-20); Calcium 8.7 mg/dL (8.6-10.3); Carbon Dioxide 22 mEq/L (23-29); Chloride 103 mEq/L (98-107); Chol/HDL Ratio 5.5 (0-4.9); Cholesterol 199 mg/dL (< 200); Ethanol < 10 mg/dL (Less than 10); Glucose 362 mg/dL (70-105); HDL Cholesterol 36 mg/dL (40-59); LDL Cholesterol,Calculated 97 mg/dL (< 100); Osmolality,Calculated 292 (280-300); Salicylate < 2.5 mg/dL (15.0-30.0); Sodium 133 mEq/L (136-145); Triglycerides 332 mg/dL (< 150); Troponin I < 0.03 ng/mL (< 0.04); eGFR For African Americans > 60 (> 60); eGFR For Non-African Americans > 60 (> 60)
[2020-09-20 17:38] LABS: Bilirubin,Urine Negative (Negative); Blood,Urine Small (Negative); Clarity,Urine Clear (Clear); Color,Urine Light-Yellow (Yellow); Glucose,Urine (UA) >=1000 mg/dL (Normal); Ketones,Urine Negative (Negative); Leukocyte Esterase,Urine Negative (Negative); Mucus,Urine Few per lpf (None-Few); Nitrite,Urine Negative (Negative); Protein,Urine 70 mg/dL (Neg-Trace); Specific Gravity,Urine 1.028 (1.010-1.025); Uric Acid Crystals,Urine Present per hpf; Urobilinogen,Urine Normal (Normal); WBC,Urine 0-3 per hpf (0-3)
[2020-09-20] MEDS ORDERED: Insulin Regular, Human 100 UNIT/ML SUBQ ONE (17:38)
[2020-09-20 17:45] LABS: Amphetamine Screen,Urine Negative ng/mL (Cutoff=1000); Barbiturate Screen,Urine Negative ng/mL (Cutoff=200); Benzodiazepines Screen,Urine Negative ng/mL (Cutoff=200); Cannabinoid Screen,Urine Negative ng/mL (Cutoff = 50); Cocaine Screen,Urine Negative ng/mL (Cutoff= 300); Opiate Screen,Urine Positive ng/mL (Cutoff=300); Phencyclidine Screen,Urine Negative ng/mL (Cutoff=25)
[2020-09-20] MEDS ORDERED: Melatonin 3 MG TABLET PO PRN (20:55)
[2020-09-20] MEDS ORDERED: Acetaminophen 325 MG TABLET PO PRN (20:55)
[2020-09-20] MEDS ORDERED: Naloxone 0.4 MG/ML INJ IVP PRN (20:55)
[2020-09-20] MEDS ORDERED: *HR* HYDROcodone/Acet 5/325 mg TABLET PO PRN (20:55)
[2020-09-20] MEDS ORDERED: Ondansetron 4 MG/2 ML VIAL IVP PRN (20:55)
[2020-09-20] MEDS ORDERED: *HR* OxyCODONE Immed Rel 5 MG TABLET PO PRN (20:55)
[2020-09-20] MEDS ORDERED: *HR* Dextrose 50 % in Water (Vial) 50 ML VIAL IVP PRN (21:05)
[2020-09-20] MEDS ORDERED: D5% in Water 1,000 ML IVC PRN (21:05)
[2020-09-20] MEDS ORDERED: Dextrose Gel 15 GM/37.5 ML TUBE PO PRN ×2 (21:05)
[2020-09-21] MEDS ORDERED: Gabapentin 300 MG CAPSULE PO ONE
[2020-09-21] MEDS: Insulin LISPRO 300 UNITS/3 ML VIAL SUBQ SCH ×4 (00:17→18:22)
[2020-09-21] MEDS ORDERED: Morphine Sulfate 2 MG/ML SYRINGE IVP ONE (03:11)
[2020-09-21 06:05] LABS: Basophils % 0.5 %; Eosinophils # 0.1 K/mcL (0.0-0.6); Eosinophils % 1.7 %; Hematocrit 41.1 % (37.5-50.1); Hemoglobin 13.1 g/dL (12.9-16.9); Immature Granulocytes % 0.5 % (0-4); Lymphocytes # 2.6 K/mcL (0.6-4.6); Lymphocytes % 34.7 %; Mean Corpuscular HGB Conc 31.9 g/dL (31.6-35.5); Mean Corpuscular Hemoglobin 27.6 pg (28.0-33.3); Mean Corpuscular Volume 86.7 fL (83.0-100.0); Mean Platelet Volume 10.1 fL (9.4-12.4); Monocytes # 0.8 K/mcL (0.0-1.3); Monocytes % 11.1 %; Neutrophils # 3.9 K/mcL (1.6-8.9); Platelet Count 155 K/mcL (140-400); Red Blood Count 4.74 M/mcL (4.19-5.50); Red Cell Distribution Width 13.6 % (11.5-14.5); Segmented Neutrophils % 51.5 %; White Blood Count 7.5 K/mcL (4.3-11.1)
[2020-09-21 06:42] LABS: Alanine Aminotransferase 24 Units/L (7-52); Albumin 3.3 g/dL (3.5-5.7); Albumin/Globulin Ratio 1.3 (1.1-2.2); Alkaline Phosphatase 70 Units/L (34-104); Aspartate Amino Transferase 20 Units/L (13-39); BUN/Creatinine Ratio 21 (6-26); Bilirubin,Total 0.4 mg/dL (0.3-1.0); Blood Urea Nitrogen 21 mg/dL (6-20); Calcium 8.3 mg/dL (8.6-10.3); Carbon Dioxide 24 mEq/L (23-29); Chloride 103 mEq/L (98-107); Globulin 2.6 g/dL (2.4-3.5); Glucose 241 mg/dL (70-105); Magnesium 1.8 mg/dL (1.6-2.6); Osmolality,Calculated 293 (280-300); Potassium 3.7 mEq/L (3.5-5.1); Sodium 136 mEq/L (136-145); Total Protein 5.9 g/dL (6.4-8.9); eGFR For African Americans > 60 (> 60); eGFR For Non-African Americans > 60 (> 60)
[2020-09-21] MEDS: Aspirin 325 MG TABLET PO SCH (10:45)
[2020-09-21] MEDS: lisinopriL 5 MG TABLET PO SCH (10:45)
[2020-09-21] MEDS: Ranolazine 500 MG TAB.ER.12H PO SCH ×2 (10:45→20:15)
[2020-09-21] MEDS ORDERED: Insulin LISPRO 300 UNITS/3 ML VIAL SUBQ SCH ×2 (11:15→21:00)
[2020-09-21] MEDS: Ketorolac 15 MG/ML VIAL IVP PRN ×2 (14:08→20:19)
[2020-09-21] MEDS: *HR* Heparin 5,000 UNIT/ML VIAL SQ SCH (18:22)
[2020-09-21] MEDS ORDERED: Insulin DETEMIR 100 UNIT/ML X5UNITS SUBQ SCH (21:00)
[2020-09-22] MEDS: Ketorolac 15 MG/ML VIAL IVP PRN (04:59)
[2020-09-22] MEDS: *HR* Heparin 5,000 UNIT/ML VIAL SQ SCH (05:02)
[2020-09-22 07:33] VITALS: BP 142/87
[2020-09-22] MEDS: lisinopriL 5 MG TABLET PO SCH (07:44)
[2020-09-22] MEDS: Insulin LISPRO 300 UNITS/3 ML VIAL SUBQ SCH ×2 (07:44→11:33)
[2020-09-22] MEDS: Ranolazine 500 MG TAB.ER.12H PO SCH (07:45)
[2020-09-22] MEDS: Aspirin 325 MG TABLET PO SCH (07:45)
[2020-09-22] MEDS ORDERED: *HR* HYDROmorphone (PF) 1 MG/ML SYRINGE IVP ONE (08:13)
[2020-09-22] MEDS ORDERED: Isosorbide MONOnitrate (24 HR) 60 MG TAB.ER.24H PO SCH (09:00)
== END 2020-09-22 11:48 | disposition home or self-care (01) | DRG 303 ==
LOC: 3BNU 15:13 → EMEROOARM 15:13 → SUATTDRO 19:46 → 3BNU 20:20
PROVIDERS: ADMIT Family Medicine; ATTEND Internal Medicine

== ENCOUNTER 2020-10-25 15:21 | Inpatient (IN) ==
[2020-10-25] MEDS ORDERED: Furosemide 40 MG/4 ML VIAL IVP ONE (15:34)
[2020-10-25 15:54] LABS: VBG HCO3 29 mEq/L (21-27); VBG PCO2 53 mmHg (41-51); VBG PH 7.35 pH Units (7.32-7.42); VBG PO2 36 mmHg (25-50)
[2020-10-25 15:54] LABS: Basophils % 0.6 %; Eosinophils # 0.1 K/mcL (0.0-0.6); Eosinophils % 1.6 %; Hemoglobin 13.1 g/dL (12.9-16.9); Immature Granulocytes % 0.3 % (0-4); Lymphocytes # 2.1 K/mcL (0.6-4.6); Mean Corpuscular Hemoglobin 27.7 pg (28.0-33.3); Mean Corpuscular Volume 86.7 fL (83.0-100.0); Mean Platelet Volume 10.1 fL (9.4-12.4); Monocytes # 0.6 K/mcL (0.0-1.3); Monocytes % 8.8 %; Neutrophils # 3.9 K/mcL (1.6-8.9); Platelet Count 187 K/mcL (140-400); Red Blood Count 4.73 M/mcL (4.19-5.50); Segmented Neutrophils % 57.7 %; White Blood Count 6.8 K/mcL (4.3-11.1)
[2020-10-25 16:15] LABS: Alanine Aminotransferase 20 Units/L (7-52); Albumin 3.7 g/dL (3.5-5.7); Albumin/Globulin Ratio 1.3 (1.1-2.2); Alkaline Phosphatase 97 Units/L (34-104); Aspartate Amino Transferase 14 Units/L (13-39); BUN/Creatinine Ratio 16 (6-26); Bilirubin,Direct 0.1 mg/dL (0.0-0.2); Bilirubin,Indirect 0.3 mg/dL (0.0-1.0); Bilirubin,Total 0.4 mg/dL (0.3-1.0); Blood Urea Nitrogen 18 mg/dL (6-20); Calcium 8.8 mg/dL (8.6-10.3); Carbon Dioxide 28 mEq/L (23-29); Chloride 108 mEq/L (98-107); Globulin 2.8 g/dL (2.4-3.5); Glucose 355 mg/dL (70-105); Osmolality,Calculated 296 (280-300); Potassium 4.1 mEq/L (3.5-5.1); Sodium 135 mEq/L (136-145); Total Protein 6.5 g/dL (6.4-8.9); Troponin I 0.03 ng/mL (< 0.04); eGFR For African Americans > 60 (> 60); eGFR For Non-African Americans > 60 (> 60)
[2020-10-25] MEDS ORDERED: Aspirin 81 MG TAB.CHEW PO ONE (16:22)
[2020-10-25 16:28] LABS: Thyroid Stimulating Hormone 1.012 mcIU/mL (0.340-5.600)
[2020-10-25] MEDS: Nitroglycerin 0.4 MG TAB.SUBL SL PRN ×3 (16:36→20:32)
[2020-10-25] MEDS ORDERED: Naloxone 0.4 MG/ML INJ IVP PRN (16:45)
[2020-10-25] MEDS ORDERED: Ondansetron 4 MG/2 ML VIAL IVP PRN (16:45)
[2020-10-25] MEDS ORDERED: *HR* Dextrose 50 % in Water (Vial) 50 ML VIAL IVP PRN (16:48)
[2020-10-25] MEDS ORDERED: D5% in Water 1,000 ML IVC PRN (16:48)
[2020-10-25] MEDS ORDERED: Dextrose Gel 15 GM/37.5 ML TUBE PO PRN ×2 (16:48)
[2020-10-25 17:03] LABS: Estimated Average Glucose 286 mg/dl; Hemoglobin A1C 11.6 %
[2020-10-25] MEDS ORDERED: Perflutren Lipid Microsphere 1.3 ML in 0.9 % Sodium Chloride 8.7 ML IVP PRN (17:13)
[2020-10-25] MEDS ORDERED: Isovue-370 500 ML BOTTLE IVP ONE (17:22)
[2020-10-25] MEDS ORDERED: Melatonin 3 MG TABLET PO ONE (20:32)
[2020-10-25] MEDS: Ranolazine 500 MG TAB.ER.12H PO SCH (20:33)
[2020-10-25] MEDS: Insulin DETEMIR 100 UNIT/ML X5UNITS SUBQ SCH (20:35)
[2020-10-25] MEDS: Insulin LISPRO 300 UNITS/3 ML VIAL SUBQ SCH (20:35)
[2020-10-25] MEDS: Furosemide 40 MG/4 ML VIAL IVP SCH (20:49)
[2020-10-25] MEDS ORDERED: *HR* Heparin 5,000 UNIT/ML VIAL IVP ONE (23:29)
[2020-10-25] MEDS ORDERED: *HR* Heparin 5,000 UNIT/ML VIAL IVP PRN ×2 (23:29)
[2020-10-25] MEDS: Heparin 25,000UNIT/250ML 1/2NS 25,000 UNIT/250 ML IV.SOLN IVC SCH (23:55)
[2020-10-26 00:23] LABS: Basophils # 0.1 K/mcL (0.0-0.2); Basophils % 0.8 %; Eosinophils # 0.1 K/mcL (0.0-0.6); Eosinophils % 1.8 %; Hematocrit 39.6 % (37.5-50.1); Hemoglobin 12.8 g/dL (12.9-16.9); Immature Granulocytes % 0.4 % (0-4); Lymphocytes # 2.2 K/mcL (0.6-4.6); Lymphocytes % 28.3 %; Mean Corpuscular HGB Conc 32.3 g/dL (31.6-35.5); Mean Corpuscular Hemoglobin 27.8 pg (28.0-33.3); Mean Corpuscular Volume 85.9 fL (83.0-100.0); Monocytes # 0.7 K/mcL (0.0-1.3); Monocytes % 9.4 %; Neutrophils # 4.7 K/mcL (1.6-8.9); Platelet Count 189 K/mcL (140-400); Red Blood Count 4.61 M/mcL (4.19-5.50); Red Cell Distribution Width 14.1 % (11.5-14.5); Segmented Neutrophils % 59.3 %; White Blood Count 7.9 K/mcL (4.3-11.1)
[2020-10-26 00:30] LABS: Heparin anti-factor XA UFH 0.74 IU/mL (0.30-0.70); INR 1.3
[2020-10-26 00:45] LABS: Activated Partial Thrombo Time 122.5 Seconds (26.0-36.0)
[2020-10-26 00:46] LABS: BUN/Creatinine Ratio 18 (6-26); Blood Urea Nitrogen 19 mg/dL (6-20); Calcium 8.6 mg/dL (8.6-10.3); Carbon Dioxide 26 mEq/L (23-29); Chloride 103 mEq/L (98-107); Glucose 222 mg/dL (70-105); Magnesium 1.7 mg/dL (1.6-2.6); Osmolality,Calculated 297 (280-300); Phosphorous 3.4 mg/dL (2.7-4.5); Potassium 3.6 mEq/L (3.5-5.1); Sodium 139 mEq/L (136-145); eGFR For African Americans > 60 (> 60); eGFR For Non-African Americans > 60 (> 60)
[2020-10-26 00:51] LABS: Troponin I 0.45 ng/mL (< 0.04)
[2020-10-26] MEDS: Insulin LISPRO 300 UNITS/3 ML VIAL SUBQ SCH ×4 (07:52→20:24)
[2020-10-26] MEDS ORDERED: Isosorbide MONOnitrate (24 HR) 60 MG TAB.ER.24H PO SCH (09:00)
[2020-10-26] MEDS ORDERED: lisinopriL 5 MG TABLET PO SCH (09:00)
[2020-10-26] MEDS: Aspirin 81 MG TAB.CHEW PO SCH (09:52)
[2020-10-26] MEDS: Ranolazine 500 MG TAB.ER.12H PO SCH ×2 (09:52→20:27)
[2020-10-26] MEDS: Furosemide 40 MG/4 ML VIAL IVP SCH ×2 (09:53→20:26)
[2020-10-26] MEDS: Nitroglycerin 0.4 MG TAB.SUBL SL PRN (10:01)
[2020-10-26] MEDS: Heparin 25,000UNIT/250ML 1/2NS 25,000 UNIT/250 ML IV.SOLN IVC SCH (13:23)
[2020-10-26] MEDS: Insulin DETEMIR 100 UNIT/ML X5UNITS SUBQ SCH (20:26)
[2020-10-26] MEDS ORDERED: Melatonin 3 MG TABLET PO ONE (21:20)
[2020-10-27] MEDS: Heparin 25,000UNIT/250ML 1/2NS 25,000 UNIT/250 ML IV.SOLN IVC SCH ×3 (03:43→21:54)
[2020-10-27] MEDS ORDERED: Acetaminophen 325 MG TABLET PO ONE (03:51)
[2020-10-27 05:51] LABS: Hematocrit 38.3 % (37.5-50.1); Hemoglobin 12.2 g/dL (12.9-16.9)
[2020-10-27 06:13] LABS: % Iron Saturation 15 % (20-55); BUN/Creatinine Ratio 19 (6-26); Blood Urea Nitrogen 24 mg/dL (6-20); Calcium 8.6 mg/dL (8.6-10.3); Carbon Dioxide 27 mEq/L (23-29); Chloride 103 mEq/L (98-107); Glucose 151 mg/dL (70-105); Iron 53 mcg/dL (65-175); Magnesium 1.9 mg/dL (1.6-2.6); Osmolality,Calculated 297 (280-300); Phosphorous 4.3 mg/dL (2.7-4.5); Potassium 3.5 mEq/L (3.5-5.1); Sodium 140 mEq/L (136-145); Transferrin 248 mg/dL (203-362); eGFR For African Americans > 60 (> 60); eGFR For Non-African Americans 59 (> 60)
[2020-10-27 06:29] LABS: Ferritin 300 ng/mL (20-250)
[2020-10-27 06:34] LABS: Folate 12.6 ng/mL (3.0-16.0)
[2020-10-27] MEDS: Insulin LISPRO 300 UNITS/3 ML VIAL SUBQ SCH ×4 (08:06→21:52)
[2020-10-27] MEDS: Isosorbide MONOnitrate (24 HR) 60 MG TAB.ER.24H PO SCH ×3 (08:08→21:51)
[2020-10-27] MEDS: Aspirin 81 MG TAB.CHEW PO SCH (08:10)
[2020-10-27] MEDS: Ranolazine 500 MG TAB.ER.12H PO SCH ×2 (08:10→21:51)
[2020-10-27] MEDS: lisinopriL 10 MG TABLET PO SCH (08:11)
[2020-10-27] MEDS: Furosemide 40 MG/4 ML VIAL IVP SCH ×2 (08:11→21:51)
[2020-10-27] MEDS ORDERED: Metoprolol XL (24 HR) Succ 50 MG TAB.ER.24H PO SCH (09:00)
[2020-10-27] MEDS ORDERED: Metoprolol XL (24 HR) Succ 50 MG TAB.ER.24H PO ONE (10:54)
[2020-10-27] MEDS: Insulin DETEMIR 100 UNIT/ML X5UNITS SUBQ SCH (21:51)
[2020-10-27] MEDS ORDERED: *HR* HYDROcodone/Acet 5/325 mg TABLET PO ONE (22:04)
[2020-10-28 05:06] LABS: Hematocrit 36.9 % (37.5-50.1); Hemoglobin 11.8 g/dL (12.9-16.9)
[2020-10-28 05:38] LABS: BUN/Creatinine Ratio 24 (6-26); Blood Urea Nitrogen 28 mg/dL (6-20); Calcium 8.6 mg/dL (8.6-10.3); Carbon Dioxide 30 mEq/L (23-29); Chloride 103 mEq/L (98-107); Glucose 159 mg/dL (70-105); Magnesium 1.9 mg/dL (1.6-2.6); Osmolality,Calculated 299 (280-300); Phosphorous 4.9 mg/dL (2.7-4.5); Potassium 3.6 mEq/L (3.5-5.1); Sodium 140 mEq/L (136-145); eGFR For African Americans > 60 (> 60); eGFR For Non-African Americans > 60 (> 60)
[2020-10-28] MEDS ORDERED: Furosemide 40 MG TABLET PO SCH (09:00)
[2020-10-28] MEDS ORDERED: Metoprolol XL (24 HR) Succ 50 MG TAB.ER.24H PO SCH (09:00)
[2020-10-28 11:16] VITALS: BP 167/89
[2020-10-28] MEDS: Insulin LISPRO 300 UNITS/3 ML VIAL SUBQ SCH ×2 (12:53→12:54)
[2020-10-28] MEDS: Aspirin 81 MG TAB.CHEW PO SCH (12:54)
[2020-10-28] MEDS: Isosorbide MONOnitrate (24 HR) 60 MG TAB.ER.24H PO SCH (12:54)
[2020-10-28] MEDS: lisinopriL 10 MG TABLET PO SCH (12:55)
[2020-10-28] MEDS: Ranolazine 500 MG TAB.ER.12H PO SCH (12:55)
== END 2020-10-28 13:20 | disposition home or self-care (01) | DRG 280 ==
LOC: EMEROOARM 15:21 → 3BNU 15:21 → SUATTDRO 17:02 → 3BNU 17:50
PROVIDERS: ADMIT Internal Medicine; ATTEND Internal Medicine